=== PATIENT | male | born 1935 | race Caucasian/White ===

== ENCOUNTER 2018-02-06 23:14 | Inpatient (IN) | payer OTHER ==
[~2018-02-06] VITALS: Ht 170.2 cm; Wt 106.1 kg
[2018-02-06 23:20] VITALS: BP 163/76
[2018-02-06] MEDS ORDERED: CARDURA4 MG PO (23:29)
[2018-02-06] MEDS ORDERED: MACRODANTIN100 MG PO (23:29)
[2018-02-06] MEDS ORDERED: LASIX 20 MG TAB20 MG PO (23:30)
[2018-02-06] MEDS ORDERED: TOPROL XL25 MG PO (23:30)
[2018-02-06] MEDS ORDERED: FLECAINIDE ACET50 M2 PO (23:31)
[2018-02-06] MEDS ORDERED: IRON325 PO (23:32)
[2018-02-06] MEDS ORDERED: XARELTO20 MG PO (23:32)
[2018-02-06] MEDS ORDERED: PROSCAR 5MG TABL5 MG PO (23:32)
[2018-02-06] MEDS ORDERED: COENZYME Q10100 MG PO (23:33)
[2018-02-06] MEDS ORDERED: FOLBIC RF TABL1 EACH PO (23:33)
[2018-02-06] MEDS ORDERED: D3 DOTS2000 UNIT PO (23:34)
[2018-02-06] MEDS ORDERED: VITAMIN C1000 MG PO (23:35)
[2018-02-06] MEDS ORDERED: SV FLAXSEED OI1 EACH PO (23:36)
[2018-02-06 23:46] LABS: URINE BILIRUBIN NEGATIVE (Negative); URINE BLOOD 3+ (Negative); URINE CLARITY TURBID; URINE COLOR YELLOW; URINE GLUCOSE-RANDOM NEGATIVE (Negative); URINE KETONES TRACE (Negative); URINE PROTEIN 2+ (Negative); URINE SPECIFIC GRAVITY 1.025 (1.005-1.030); URINE UROBILINOGEN 0.2 E.U./dl (0.2-1.0)
[2018-02-06 23:47] LABS: URINE LEUKOCYTES-REFLEX 3+ (Negative); URINE NITRITE-REFLEX POSITIVE (Negative)
[2018-02-06 23:52] LABS: HEMATOCRIT 42.9 % (42.0-52.0); HEMOGLOBIN 14.1 gm/dL (14.0-18.0); MCH 30.2 pg (26.0-34.0); MCV 91.6 fL (80.0-100.0); MPV 7.5 fl. (7.2-11.1); NUCLEATED RBCS 0 /100WBC; PLATELET COUNT* 247 thou/uL (150-400); RBC 4.68 mil/uL (4.50-6.00); WBC 13.5 thou/uL (4.0-11.0)
[2018-02-07] VITALS (9 sets, daily range): BP systolic 98–158; BP diastolic 49–83
[2018-02-07 00:06] LABS: CALCIUM 9.2 mg/dL (8.5-10.1); CREATININE 1.5 mg/dL (0.6-1.3); POTASSIUM 4.2 mmol/L (3.5-5.1)
[2018-02-07 00:08] LABS: CASTS None Seen /LPF (None Seen); SQUAMOUS 0-3 Few /LPF (0-3); URINE RBC >20 Many /HPF (0-2); URINE WBC-REFLEX >25 Many /HPF (0-5)
[2018-02-07 00:09] LABS: CRYSTALS None Seen /LPF (None Seen)
[2018-02-07 00:16] LABS: ALBUMIN 3.3 g/dL (3.4-5.0); TOTAL BILIRUBIN 0.6 mg/dL (<0.1-1.0); TOTAL PROTEIN 7.5 g/dL (6.4-8.2)
[2018-02-07 00:50] LABS: ABSOLUTE LYMPHOCYTES 0.7 thou/uL (0.8-5.3); ABSOLUTE MONOCYTES 1.1 thou/uL (0.0-1.2); ABSOLUTE NEUTROPHILS 11.7 thou/uL (1.6-8.1); LARGE PLATELETS OCCASIONAL; PLATELET ESTIMATE ADEQUATE
--- NOTE | 2018-02-07 06:10 | NUR ---
ASSESSMENT COMPLETE. ADMITTED WITH UTI AND LEFT EPIDIDYMITIS FAILED OUTPT. PT GIVEN IV LEVAQUIN AND ROCEPHIN. PT GIVEN VICODIN IN ED FOR PAIN AND HAS DENIED ANY PAIN SINCE ADMISSION TO FLOOR. PT VITALS STABLE. PT IS ALERT AND ORIENTED X4. PT IS ON ROOM AIR WITH ADEQAUTE SATS. DENIES N/V. PT REPORTS BURNING WITH URINATION. PT IS UP WITH ONE ASSIST TO BATHROOM. PT USES URINAL AT BEDSIDE. SEE ASSESSMENT AND VITALS FOR OTHER DETAILS. CALL LIGHT WITHIN REACH, WILL CONTINUE PLAN OF CARE
[2018-02-07 09:17] LABS: ABSOLUTE LYMPHOCYTES 1.1 thou/uL (0.8-5.3); ABSOLUTE MONOCYTES 1.5 thou/uL (0.0-1.2); ABSOLUTE NEUTROPHILS 14.7 thou/uL (1.6-8.1); BASOPHILS 0.2 %; HEMATOCRIT 38.2 % (42.0-52.0); HEMOGLOBIN 12.7 gm/dL (14.0-18.0); LYMPHOCYTES 6.1 %; MCH 30.1 pg (26.0-34.0); MCHC 33.4 g/dL (28.0-37.0); MCV 90.2 fL (80.0-100.0); MONOCYTES 8.6 %; MPV 7.5 fl. (7.2-11.1); NUCLEATED RBCS 0 /100WBC; PLATELET COUNT* 227 thou/uL (150-400); POLYS 85.1 %; RBC 4.23 mil/uL (4.50-6.00); RDW-CV 13.9 % (10.5-14.5); WBC 17.3 thou/uL (4.0-11.0)
[2018-02-07 09:20] LABS: CALCIUM 8.3 mg/dL (8.5-10.1); CREATININE 1.3 mg/dL (0.6-1.3); POTASSIUM 4.2 mmol/L (3.5-5.1)
--- NOTE | 2018-02-07 14:45 | NUR ---
SW met with pt to complete initial assessment, introduce self, and SW role. Pt lives at home with ; pt says he and his plan to look into "[employer] insurance" that pt says will help pay for in home assistance as his may not be able to care for all of the needs with pt and household. Pt says that he does not use any DME or HH services. Pt is not sure that he will have any needs at dc; SW to continue to follow to assist with safe dc planning.
[2018-02-07 16:51] LABS: INR 1.3; PROTIME 12.4 Seconds (9.20-11.50)
--- NOTE | 2018-02-07 17:55 | NUR ---
UROLOGY HERE THIS AM AND SAW PATIENT FOR CONS REGARDING SCROTUM. SCROTUM ELEVATED AND BLADDER SCANNED. PATIENT URINATING SMALL AMOUNTS FREQUENTLY. CT ABD/PELVIS ORDERED AND DONE THIS AFTERNOON. RESULTS CALLED TO MILLER TAN FROM UROLOGY. ORDERS FOR COUDE, UROLOGY UNABLE TO PLACE. SCROTUM NOTED TO BE MORE RED/SWOLLEN WITH NOTABLE PURPLE DISCOLORATION TO BOTTOM TO SCROTUM, MILLER SANTILLAN AND NOTIFIED. DR. FRANCOIS HERE THIS EVENING AND PATIENT TO GO TO SURGERY. IVF WAS STARTED PER UROLOGY ORDERS AND XARELTO WAS NOT GIVEN THIS SHIFT.
[2018-02-08 04:07] VITALS: BP 138/76
[2018-02-08 04:55] LABS: HEMATOCRIT 35.6 % (42.0-52.0); HEMOGLOBIN 11.9 gm/dL (14.0-18.0); MCH 30.2 pg (26.0-34.0); MCHC 33.5 g/dL (28.0-37.0); MCV 90.2 fL (80.0-100.0); RBC 3.95 mil/uL (4.50-6.00); WBC 15.5 thou/uL (4.0-11.0)
[2018-02-08 04:59] LABS: CALCIUM 8.2 mg/dL (8.5-10.1); CREATININE 1.2 mg/dL (0.6-1.3); POTASSIUM 3.9 mmol/L (3.5-5.1)
--- NOTE | 2018-02-08 06:01 | NUR ---
PATIENT ARRIVED BACK ON FLOOR FROM PACU AT ABOUT 2030. I/D WAS DONE ON HIS SCROTUM. PATIENT HAS HAD NO COMPLAINTS OF PAIN. PATIENT HAS BEEN ON OXYGEN AT 3L PER NASAL CANNULA WITH THE CAPNO. IV FLUIDS AND ANTIBIOTICS WERE GIVEN ORDERED. VIERA REMAINS TO DEPENDENT DRAIN. WILL CONTINUE TO MONITOR.
[2018-02-08 07:45] VITALS: BP 124/68
--- NOTE | 2018-02-08 09:52 | EKG ---
[place] [address] ELECTROCARDIOGRAM REPORT Name: KAREEN ROMERO Room: [address] ADM IN .R.#: [id number] Admission: 02/07/18 Attend Phys: Karen Gomez Discharge: Date of : 31 Report #: [id number] THIS REPORT FOR: //name// [facility] Test Date: 2018-02-07 Test Time: 17:32:22 Pat Name: KAREEN ROMERO Department: Room: [address] Gender: M Retail Wireless Associate: : 1935 Requested By: Ayanna West Order Number: [id number] Luis Carlos MD: Jesse Mon Measurements Intervals [place] Rate: 65 P: 66 MO: 196 QRS: -9 QRSD: 98 T: 52 QT: 444 QTc: 462 Interpretive Statements Sinus rhythm Low voltage, extremity leads Abnormal R-wave progression, early transition No previous ECG available for comparison Electronically Signed On 02-08-2018 9:52:06 CDT by Jesse Mon [email or web address] <ELECTRONICALLY SIGNED> By: Jesse Mon MD, [facility] 02/08/18 0952 [id number] 31 Jesse Mon MD, [facility] /EPI
--- NOTE | 2018-02-08 11:51 | NUR ---
WOUND NURSE: SPOKE WITH DR. ALESSANDRO MD AND POC OF SCROTAL WOUNDS DEVELOPED. THERE ARE 3 WOUND OPENINGS: ANTERIOR WOUND OPENING MEASURES: 4.8 X 5.7 X 2.8 CM. LEFT SIDE: 1.2 X 0.5 X 1.1 CM. POSTERIOR: 1.2 X 0.7 X 2.0 CM. SCROTUM PRESENTS SLIGHTLY COOL AND REDDISH-PURPLE IN COLOR AND IS EDEMATOUS. WOUND BED WITH DARKER RED NONGRANULATING TISSUE IN THE WOUND BED. THERE IS A MODERATE AMOUNT OF SANGUINOUS DRAINAGE ON THE OLD DRESSING. REMOVED DRESSING AND ALL PACKING THEN CLEANSED WITH WOUND CLEANSER AND GAUZE. PACKED THE ANTERIOR WOUND USING 1 INCH IODOFORM GAUZE, THEN PACKED THE LEFT AND POSTERIOR WOUND WITH 1/4 INCH IODOFORM GAUZE. COVERED WITH FOLDED KERLEX ROLL GAUZE TO CREATE FLUFF GAUZE SPONGES, THEN COVERED WITH ABD X 2, AND HELD DRESSING IN PLACE USING MESH PANTIES. DRESSING IS TO BE CHANGED DAILY AND NEEDED.
--- NOTE | 2018-02-08 15:38 | CON ---
[address] [address] CONSULTATION Name: ROMEROKAREEN Camryn Room: [address] IN .R.#: [id number] Admission: 02/07/18 Attend Phys: Karen Gomez Discharge: Date of : 31 Report #: [id number] THIS REPORT FOR: //name// CC: Diogenes Perez DATE OF SERVICE: 02/08/2018 INFECTIOUS DISEASE CONSULTATION ATTENDING PHYSICIAN: Fred Mcgowan M.D. REASON FOR EVALUATION: Necrotizing skin and soft tissue infection involving the perineal area. HISTORY OF PRESENT ILLNESS: Chart reviewed, the patient examined. This is an 83-year-old with history of hypertension, does have an enlarged prostate apparently, who has had issues, although not frequently, of urinary tract infections. He developed burning with urination approximately 3 weeks ago. He had figured it would improve; however, did not. He was evaluated and felt to have a urinary tract infection and treated with Bactrim. It did not improve. It actually worsened over the course of the weekend, by Tuesday night, with excruciating pain. He was evaluated in the Emergency Room and subsequently admitted. Imaging raised a question of some process. He emergently went to surgery last evening for debridement and felt to have polymicrobial infection. He is seen today. He is much improved, particularly the pain. He denies systemic illness. He is not having difficulty breathing at this point. He has been afebrile. He is empirically placed on meropenem after having received initially ceftriaxone and nitrofurantoin. ALLERGIES: CODEINE AND LISTED TO AUGMENTIN. CURRENT MEDICATIONS: Include hydrocodone, meropenem, cholecalciferol, doxazosin, p.r.n. analgesics, antiemetics, ferrous sulfate, cyanocobalamin, finasteride, metoprolol, furosemide and flecainide. PAST MEDICAL HISTORY: History of hypertension, atrial fibrillation and BPH. SOCIAL HISTORY: Nonsmoker, no ethanol. FAMILY HISTORY: Noncontributory. REVIEW OF SYSTEMS: As above. PHYSICAL EXAMINATION: GENERAL: He is pleasant, alert and cooperative. He is in mild distress, [place] [address] CONSULTATION Name: KAREEN ROMERO Room: [address]#: [id number] Admission: 02/07/18 Attend Phys: Karen Gomez Discharge: Date of : 33 Report #: [id number] appears to be generally well nourished. VITAL SIGNS: Temperature 97.8, pulse 67, respirations 21 and blood pressure 111/58. SKIN: Warm, dry. HEENT: Unremarkable. NECK: Supple. LUNGS: Generally clear to auscultation. HEART: Regular. I do not appreciate a murmur. ABDOMEN: Soft. GENITOURINARY: Perineal area, there is some moderate degree of inflammation. There is an open wound with packing. There are some areas of superficial devitalized tissue. RECTAL: Deferred. LABORATORY DATA: Urine culture, greater than 10 to the fifth gram-negative franco. Blood cultures sterile thus far. Lactic acid 1.6. Electrolytes: Sodium 137, potassium 3.9, chloride 101, bicarbonate is 29 and BUN and creatinine 20 and 1.2. Estimated GFR 58. CBC: White count of 15.5, H and H 11.9 and 35.6 and platelets of 223,000. ASSESSMENT AND PLAN: Necrotizing perineal infection, without overt evidence of marked hemodynamic instability or multiorgan failure. We will continue meropenem. Per report, he may have a resistant gram-negative isolate from the urine previously. There is some concern about ongoing issues with toxin-mediated necrosis and may need additional operative debridement. He is recommended to be n.p.o. At this point, would concur. We will monitor expectantly for other potential infectious complications and introduce incentive spirometry. We will monitor expectantly. <ELECTRONICALLY SIGNED> By: Victor M Isaac MD 02/08/18 1538 1357 1519Jochristiano Isaac MD /nt
[2018-02-08 16:12] VITALS: BP 113/65
--- NOTE | 2018-02-08 16:23 | NUR ---
WOUND CARE HERE THIS MORNING TO SEE PATIENT, PACKING CHANGED TO SCROTUM. NO COMPLAINTS OF PAIN THIS SHIFT. PATIENT UP FOR MEALS. IVF INFUSING, SCHED ABX. VIERA DRAINING WITHOUT DIFFICULTY. NPO AFTER MIDNIGHT. XARELTO ON HOLD.
[2018-02-08 19:31] VITALS: BP 138/68
--- NOTE | 2018-02-09 01:07 | NUR ---
PT WITH EKG CHANGES NOTED; NO COMPLAINTS OF PAIN; REPORTED THAT HIS HEART WAS RACING; NOTED AFIB RVR, WITH POSSIBLE ST ELEVATION IN V2 AND V3; FAXED TO CARDIOLOGY INTERVENTIONALIST; RECEIVED PHONE CALL AND REPORTED PER INTERVENTIONALIST, NEGATIVE FOR STEMI, CONFIRMED AFIB RVR, WILL REPORT TO HOSPITALIST AND PRIMARY NURSE
--- NOTE | 2018-02-09 03:31 | NUR ---
HOSPITALIST NOTIFIED OF AFIB WITH RVR. CARDIZEM GTT ORDERED AND STARTED AT 10MG/HR. CURRENT VITALS 109/65 HEART RATE 90'S TO 110'S. PT IS ON 5L PER NC WITH ADEQAUTE SATS. PT DENIES CHEST PAIN. PT IS SLEEPING, WILL CONTINUE TO MONITOR
[2018-02-09 04:00] VITALS: BP 109/65
[2018-02-09 04:42] LABS: ABSOLUTE EOSINOPHILS 0.1 thou/uL (0.0-0.7); ABSOLUTE LYMPHOCYTES 1.2 thou/uL (0.8-5.3); ABSOLUTE MONOCYTES 1.2 thou/uL (0.0-1.2); ABSOLUTE NEUTROPHILS 11.3 thou/uL (1.6-8.1); BASOPHILS 0.3 %; EOSINOPHILS 0.9 %; HEMATOCRIT 35.7 % (42.0-52.0); HEMOGLOBIN 11.7 gm/dL (14.0-18.0); LYMPHOCYTES 8.9 %; MCHC 32.7 g/dL (28.0-37.0); MCV 91.7 fL (80.0-100.0); MONOCYTES 8.9 %; NUCLEATED RBCS 0 /100WBC; PLATELET COUNT* 229 thou/uL (150-400); RBC 3.89 mil/uL (4.50-6.00); RDW-CV 13.8 % (10.5-14.5); WBC 13.9 thou/uL (4.0-11.0)
[2018-02-09 05:04] LABS: CALCIUM 8.1 mg/dL (8.5-10.1); CREATININE 1.1 mg/dL (0.6-1.3); MAGNESIUM 2.2 mg/dL (1.8-2.4); POTASSIUM 3.5 mmol/L (3.5-5.1)
--- NOTE | 2018-02-09 05:13 | NUR ---
ASSESSMENT COMPLETE. PT IS CURRENTLY SLEEPING. PT IS STILL ON 5L PER NC WITH ADEQAUTE SATS. CARDIZEM GTT GOING AT 10MG/HR, BP 127/78 HEART RATE 100-110'S. PT DENIES PAIN AT THIS TIME. VIERA IN PLACE WITH ADEQAUTE OUTPUT. IV IN RIGHT FOREARM WITH FLUIDS INFUSING. PT IS FALL RISK, BED ALARM ON. SEE ASSESSMENT AND VITALS FOR OTHER DETAILS. CALL LIGHT WITHIN REACH, WILL CONTINUE PLAN OF CARE
[2018-02-09 06:14] VITALS: BP 127/78
--- NOTE | 2018-02-09 09:43 | EKG ---
[place] [address] ELECTROCARDIOGRAM REPORT Name: KAREEN ROMERO Room: [address] ADM IN ..#: [id number] Admission: 02/07/18 Attend Phys: Karen Gomez Discharge: Date of : 31 Report #: [id number] THIS REPORT FOR: //name// [facility] Test Date: 2018-02-09 Test Time: 00:49:29 Pat Name: KAREEN ROMERO Department: Room: [address] Gender: M Safety And Health Manager: UNKNOWN : 1935 Requested By: Lina Case Order Number: [id number] Luis Carlos MD: Jesse Mon Measurements Intervals [place] Rate: 146 P: IN: QRS: -29 QRSD: 96 T: 102 QT: 294 QTc: 459 Interpretive Statements Atrial fibrillation with rapid V-rate Low voltage, extremity leads nonspecific st changes Compared to ECG 02/07/2018 17:32:22 Sinus rhythm no longer present Electronically Signed On 02-09-2018 9:43:36 CDT by Jesse Mon [email or web address] <ELECTRONICALLY SIGNED> By: Jesse Mon MD, [facility] 02/09/18 0943 0049 0049 Jesse Mon MD, [facility] /EPI
--- NOTE | 2018-02-09 10:30 | NUR ---
PATIENT TRANSFERED TO TELEMETRY UNIT. REPORT GIVEN TO ELENA. BELONGINGS PACKED AND TRANSFERED WELL.
--- NOTE | 2018-02-09 11:02 | NUR ---
RECIEVED REPORT FROM RICARDO AND ASSUMED CARE OF PT @ 1025. PT IS A/O X 4, VSS,TRACING AFIB ON MONITOR, PT MAINTAINS 5L O2 NC WITH 96% O2 SAT.THIS NURSE AGREES WITH PREVIOUS NURSE ASSESSMENT. CONTACT ISOLATION MAINTAINED. PT IS CALM AND COOPERATIVE WITH CALL LIGHT AND FALL PRECAUTIONS IN PLACE. PT WAS LEFT RESTING IN BED WITH FAMILY AT BEDSIDE. WILL CONTINUE TO MONITOR.
[2018-02-09 11:30] VITALS: BP 102/62
--- NOTE | 2018-02-09 12:28 | 2DMMODE ---
[place] [address] 2 D/M-MODE ECHOCARDIOGRAM Name: KAREEN ROMERO Camryn Room: [address] IN [facility]#: [id number] Admission: 02/07/18 Attend Phys: Angelo Perez Discharge: Date of : 31 Date of Service: 02/09/18 1228 Report #: [id number] THIS REPORT FOR: //name// APPROVED REPORT Study performed: 02/09/2018 10:45:30 EXAM: Comprehensive 2D, Doppler, and color-flow Echocardiogram Patient Location: In-Patient Room #: 210 Status: 3 BSA: 2.21 HR: 99 bpm BP: 126/77 mmHg Rhythm: Atrial Fibrillation Other Information Study Quality: Good Indications Atrial Fibrillation 2D Dimensions LVEF(%): 66.92 (>50%) IVSd: 16.18 (7-11mm) LVOT Diam: 21.25 (18-24mm) LVDd: 53.08 mm PWd: 13.13 (7-11mm) Ascending Ao: 41.63 (22-36mm) LVDs: 33.24 (25-40mm) Aortic Root: 39.80 mm Haines's LVEF: 66.92 % Volumes Left Atrial Volume (Systole) LA ESV Index: 45.10 mL/m2 Aortic Valve AoV Peak Jai.: 1.56 m/s AO Peak Gr.: 9.75 mmHg LVOT Max P.74 mmHg AO Mean Gr.: 5.69 mmHg LVOT Mean P.60 mmHg LVOT Max V: 1.09 m/s AO V2 VTI: 27.52 cm LVOT Mean V: 0.75 m/s LAURA (VTI): 2.57 cm2 LVOT V1 VTI: 19.90 cm Mitral Valve MV Decel. Time: 162.91 [place] [address] 2 D/M-MODE ECHOCARDIOGRAM Name: KAREEN ROMERO Camryn Room: [address] IN [facility]#: [id number] Admission: 02/07/18 Attend Phys: Angelo Perez Discharge: Date of : 31 Date of Service: 02/09/18 1228 Report #: [id number] PHT: 47.24 ms MVA (PHT): 4.66 cm2 TDI Medial E' Jai.: 0.17 m/s Lateral E' Jai.: 0.16 m/s Pulmonary Valve PV Peak Jai.: 0.95 m/s PV Peak Gr.: 3.59 mmHg Tricuspid Valve TR Peak Gr.: 29.01 mmHg RVSP: 34.00 mmHg Left Ventricle The left ventricle is normal size. There is normal LV segmental wall motion. Mild concentric left ventricular hypertrophy. Left ventricular systolic function is normal. The left ventricular ejection fraction is within the normal range. LVEF is 60-65%. This study is not technically sufficient to allow evaluation of the LV diastolic function due to atrial fibrillation. Right Ventricle The right ventricle is normal size. The right ventricular systolic function is normal. Atria Left atrium is moderately dilated. The right atrium size is normal. Aortic Valve Mild aortic valve sclerosis. Trace aortic regurgitation. There is no aortic valvular stenosis. Mitral Valve The mitral valve is normal in structure. There is no mitral valve regurgitation noted. No evidence of mitral valve stenosis. Tricuspid Valve The tricuspid valve is normal in structure. Mild tricuspid regurgitation. The RVSP is 30-35 mmHg. Pulmonic Valve The pulmonary valve is normal in structure. Trace pulmonic regurgitation[place] [address] 2 D/M-MODE ECHOCARDIOGRAM Name: KAREEN ROMERO Camryn Room: [address]#: [id number] Admission: 02/07/18 Attend Phys: Angelo Perez Discharge: Date of : 31 Date of Service: 02/09/18 1228 Report #: [id number] The aortic root is normal in size. IVC is normal in size and collapses with >50% inspiration Pericardium There is no pericardial effusion. <Conclusion> LVEF is 60-65%. There is normal LV segmental wall motion. Left atrium is moderately dilated. Mild aortic valve sclerosis. There is no aortic valvular stenosis. Trace aortic regurgitation. Mild tricuspid regurgitation. The RVSP is 30-35 mmHg. There is no mitral valve regurgitation noted. No evidence of mitral valve stenosis. <ELECTRONICALLY SIGNED> By: Daquan Boone MD, FACC 02/09/18 1228 1228 1228 Daquan Boone MD, FACC /INF
--- NOTE | 2018-02-09 13:18 | S ---
[place] [address] SURGICAL PATH RPT PROCEDURE Name: KAREEN LAROSE Room: [address] IN ..#: [id number] Admission: 02/07/18 Date of : 33 Discharge: Report #: [id number] Path Case #: [id number] PATHOLOGY REPORT COLLECTION DATE: 02/07/2018 RECEIVED DATE: 02/08/2018 SUBMITTING PHYS: Dr. Ayanna West OTHER PHYS: Dr. Angelo Aguirre SPECIMEN(S) RECEIVED: A.Necrotic scrotal skin * * * * * * * * * * * * FINAL DIAGNOSIS: Necrotic scrotal skin: - Benign skin with extensive acute inflammation and fresh hemorrhage. (LYLE:alissa; 02/09/2018) PATHOLOGIST: Jea nPaul Hu M.D. REPORT ELECTRONICALLY SIGNED BY: Jean Paul Hu M.D. DATE/TIME: 02/09/2018 13:18 * * * * * * * * * * * * GROSS PATHOLOGY: The specimen is received in formalin, labeled "Kareen Larose, necrotic scrotal skin," and consists of 4 segments of brunson-hare skin and underlying necrotic soft tissue measuring 3.9 x 3.4 x 1.0 cm in aggregate. Represent sections are submitted in A1. (SDY; 02/08/2018) CLINICAL HISTORY: Fourniers gangrene INITIAL CPT CODE(S): A; 18839 Professional services performed by [facility] at [facility], [address] [place] [address]. Technical services performed by [facility] at [address] [place] [address], [address], [place] [address]. [facility] [id number] [place] [address] SURGICAL PATH RPT PROCEDURE Name: KAREEN LAROSE Room: [address] IN ..#: [id number] Admission: 02/07/18 Date of : 33 Discharge: Report #: [id number] Path Case #: [id number] PHONE: [phone] DIRECTOR: Stas Martinez M.D. * * * END OF REPORT * * *
[2018-02-09 14:58] VITALS: BP 98/54
--- NOTE | 2018-02-09 15:00 | NUR ---
PT CHEMICALLY CARDIOVERTED WITH A SEVEN SECOND PAUSE. TRACING SINUS GAIL ON MONITOR.IV CARDIZM STOPPED.EKG OBTAINED SHOWING SINUS GAIL.VITAL SIGNS TAKEN WITH BP 98/54.CARDIOLOGY NOTIFIED.
--- NOTE | 2018-02-09 18:56 | NUR ---
VSS. CARDIAC MONITORING IN PLACE PT REMIANS IN SR. PT PROGRESSIN TOWARDS GOALS. PT TITRATED TO RA. IVF INFUSING PER ORDERS. PT HAS HAD NO COMPLAITNS OF PAIN OR DISCOMFORT. PT'S DRESSING CHANGED BY UROLOGY. UROLOGY STRESSED IMPORTANCE OF WOUND NURSE ROUNDING AND SEEING PT FOR WOUND CARE. PT NPO AT 0000 FOR POSSIBLE SURERY IN AM. ULTRASOUND ORDERED IN AM. PT INFORMED OF PLAN OF CARE. CALL LIGHT IS WITHIN REACH. WILL CONTINUE TO MONITOR FOR DURATION OF SHIFT.
[2018-02-09 20:00] VITALS: BP 147/86
[2018-02-10] VITALS: BP 180/86
[2018-02-10 04:00] VITALS: BP 185/94
[2018-02-10 04:49] LABS: HEMATOCRIT 35.8 % (42.0-52.0); MCH 30.6 pg (26.0-34.0); MCHC 33.4 g/dL (28.0-37.0); MCV 91.4 fL (80.0-100.0); MPV 7.4 fl. (7.2-11.1); RBC 3.92 mil/uL (4.50-6.00); RDW-CV 13.9 % (10.5-14.5); WBC 13.3 thou/uL (4.0-11.0)
[2018-02-10 05:06] LABS: CALCIUM 8.3 mg/dL (8.5-10.1); CREATININE 0.9 mg/dL (0.6-1.3); POTASSIUM 3.7 mmol/L (3.5-5.1)
--- NOTE | 2018-02-10 05:48 | NUR ---
ASSUMED CARE OF PT AT 1900 ALERT AND ORIENTED VS AND ASSESSMENT STABLE. PT GOT OOB TO THE BEDSIDE COMMODE AND HIS ABD CAME OFF. PT ASKED ANOTHER NURSE WHO WAS HELPING HIM AND REFUSED TO GET BACK INTO BED UNTIL IT WAS DONE, PT ALSO YELLED AT STAFF BECAUSE WHEN PT ASKED IF THEY HAD A PHONE TEMPERATURE REGULATOR STAFF ASKED WHAT KIND PT RESPONDED BY YELLING " WELL THERES ONLY ONE KIND NOW ADAYS" TECH ASKED IF HE HAD HIS TEMPERATURE REGULATOR HERE AND SHE COULD CALL THE PREVIOUS UNIT AND ASK IF IT WAS STILL THERE PT RESPONDED " THEY DONT LIKE ME UP THERE THEY WONT FIND IT" PT THEN COMPLAINING OF CHEST PAIN DENIED ANY OTHER COMPLAINTS PRN MORPHINE O2 2L NC EKG AND TROP COMPLETED. PT SLEPT AFTER HAVING THE MORPHINE AND WOKE UP ANGRY THAT HE WAS ONLY GETTING HIS FLECANIDE BID AND HE TAKES IT TID AT HOME. PT STATED" DONT THEY CONSULT WITH MY DOCTOR BEFORE THEY MAKE CHANGES TO MY MEDS i CANT GO MORE THAN 8 HRS BEFORE MY HEART GOES CRAZY" BP 206/103 AT THIS TIME [address]IED DR PARR OF ABOVE, FLECANIDE CHANGED TO TID AND PRN BP MEDS ORDERED. WILL CONTINUE PLAN OF CARE.
[2018-02-10 11:33] VITALS: BP 188/97
--- NOTE | 2018-02-10 12:53 | NUR ---
ASSUMED PT CARE AT 0700 PT IS ALERT AND ORIENTED X 4 PT C/O PAIN IN BACK AND CHEST WHEN PT TAKES DEEP BREATH IN PT STATES HE WANTS TYLENOL THAT IV MORPHINE DID NOT HELP PAIN MILLER KUNZ UROLOGY SAW PT TALKED WITH NURSE PRACTIONER FOLLOWING PT AND ORDERED A CTA CHEST DOWN TO THE PELVIS SURGERY WILL SEE PT LATER TODAY, PT HAS ANTIBIOTICS ORDERED IV AND FLUIDS RUNNING, PT SCROTUM IS PACKED AND HAS DRESSING COVERING, PT HAS BEEN PLEASANT AND COOPERATIVE WITH THIS NURSE PT HAS NOT BEEN INAPPROPRIATE OR HOSTILE TOWARDS STAFF, GAVE PT TYLENOL WILL CONTINUE TO MONITOR
--- NOTE | 2018-02-10 13:48 | EKG ---
[place] [address] ELECTROCARDIOGRAM REPORT Name: KAREEN ROMERO Room: [address] ADM IN [facility]#: [id number] Admission: 02/07/18 Attend Phys: Karen Gomez Discharge: Date of : 33 Report #: [id number] THIS REPORT FOR: //name// [facility] Test Date: 2018-02-09 Test Time: 09:38:21 Pat Name: KAREEN ROMERO Department: Room: [facility] Gender: M Erosion Control Specialist: : 1935 Requested By: Angelo Perez Order Number: [id number] Luis Carlos MD: Jesse Mon Measurements Intervals [place] Rate: 94 P: [place]: QRS: -19 QRSD: 95 T: 75 QT: 371 QTc: 464 Interpretive Statements Atrial fibrillation Borderline left axis deviation Borderline low voltage, extremity leads Compared to ECG 02/09/2018 00:49:29 ST (T wave) deviation no longer present Electronically Signed On 02-10-2018 13:48:33 CDT by Jesse Mon [email or web address] <ELECTRONICALLY SIGNED> By: Jesse Mon MD, [facility] 02/10/18 1348 0938 0938 Jesse Mon MD, [facility] /EPI
--- NOTE | 2018-02-10 13:49 | EKG ---
[place] [address] ELECTROCARDIOGRAM REPORT Name: HEATHERKAREEN Camryn Room: [address] ADM IN ..#: [id number] Admission: 02/07/18 Attend Phys: Karen Gomez Discharge: Date of : 33 Report #: [id number] THIS REPORT FOR: //name// [facility] Test Date: 2018-02-09 Test Time: 14:42:53 Pat Name: KAREEN ROMERO Department: Room: [address] Gender: M Frame Coverer: UNKNOWN : 1935 Requested By: Angelo Perez Order Number: [id number] Luis Carlos MD: Jesse Mon Measurements Intervals [place] Rate: 54 P: 66 VA: 201 QRS: -12 QRSD: 100 T: 61 QT: 428 QTc: 406 Interpretive Statements Sinus bradycardia Low voltage, extremity leads Electronically Signed On 02-10-2018 13:49:19 CDT by Jesse Mon [email or web address] <ELECTRONICALLY SIGNED> By: Jesse Mon MD, [facility] 02/10/18 1349 1442 1442 Jesse Mon MD, [facility] /EPI
--- NOTE | 2018-02-10 13:54 | EKG ---
[place] [address] ELECTROCARDIOGRAM REPORT Name: KAREEN ROMERO Room: [address] ADM IN .R.#: [id number] Admission: 02/07/18 Attend Phys: Karen Gomez Discharge: Date of : 31 Report #: [id number] THIS REPORT FOR: //name// [facility] Test Date: 2018-02-10 Test Time: 04:12:10 Pat Name: KAREEN ROMERO Department: Room: [address] Gender: M Farm Product Purchaser: : 1935 Requested By: Angelo Perez Order Number: [id number] Luis Carlos MD: Jesse Mon Measurements Intervals [place] Rate: 88 P: 54 [place]: 202 QRS: -21 QRSD: 99 T: 61 QT: 378 QTc: 458 Interpretive Statements Sinus rhythm Atrial premature complexes Borderline left axis deviation Low voltage, extremity leads Compared to ECG 02/09/2018 00:49:29 Atrial premature complex(es) now present ST (T wave) deviation no longer present Electronically Signed On 02-10-2018 13:54:47 CDT by Jesse Mon [email or web address] <ELECTRONICALLY SIGNED> By: Jesse Mon MD, [facility] 02/10/18 1354 0412 0412 Jesse Mon MD, [facility] /EPI
[2018-02-10 20:08] VITALS: BP 151/86
[2018-02-11] VITALS: BP 191/98
--- NOTE | 2018-02-11 07:58 | NUR ---
Pt hypertensive overnight. BP at MN was 190/100, then 180/135 at 0400. Hydralazine given after each of these BPs; however, pt continues to be hypertensive. Pt c/o minior pain to back, medicated twice with Tylenol per pt request. Reorts partial, but adequate relief after receiving Tylenol. Changed dressing to scrotum this am using Aquaseal and ABD pad. Will continue to monitor.
[2018-02-11 09:00] VITALS: BP 200/94
[2018-02-11 17:27] VITALS: BP 164/88
--- NOTE | 2018-02-11 18:38 | NUR ---
ASSUMED PT CARE AT 0700 PT IS ALERT AND ORIENTED X 4 PT STATES PAIN IN BACK STATES PAIN IS TOLERABLE PT DENEIES SOA ON 2L/NC, PT IS ANXIOUS ABOUT BLOOD PRESSURE WHICH IS ELEVATED GAVE PT MEDICATIONS AND EXTRA DOSE OF LISINOPRIL THE PHYSICIAN ORDERED AND THE PRN HYDRALAZINE PT BLOOD PRESSURE HAS DECREASED STILL ELEVATED PT IS INAPPROPRIATE TO STAFF YELLED AT THIS NURSE, PT IS UP WITH SBA TO COMMODE UROLOGY SAW PT CHANGED DRESSING ORDERS, PT THIS EVENING STATES PAIN IS NO LONGER TOLERABLE ASKED FOR TYLENOL WHICH THIS NURSE GAVE PT, PT IS SR-ST ON MONITOR, PT HAS VIERA IN PLACE, WILL CONTINUE TO MONITOR
[2018-02-11 20:00] VITALS: BP 153/85
[2018-02-11 23:26] VITALS: BP 175/99
--- NOTE | 2018-02-12 01:42 | NUR ---
THIS PTS NURSE ASKED ME TO GO WITH HER TO START PTS IV MEROPENEM BECAUSE PT HAD BEEN VERY RUDE TO HER EARLIER IN THE SHIFT AND SHE WANTED A WITNESS TO HIS BEHAVIOR. PT WAS VERY RUDE WHEN SHE ENTERED THE ROOM. PT TOLD HER THAT HE DIDNT WANT THE ANTIBIOTIC. SHE ASKED IF HE WAS REFUSING. HE SAID HE WASNT. SO SHE ASKED ME TO START IT. SO I TRIED TO HOOK IT UP TO HIS IV AND HE TOLD ME THAT HE DIDNT WANT ME TO GIVE IT TO HIM EITHER. PT WAS VERY BELIGERENT AND BORDERLINE VERBALY ABUSIVE TO OVI.
--- NOTE | 2018-02-12 01:49 | NUR ---
PT ALERT ORIENTED. INITAL HANDOFF RN CATA STATED A SMALL AMT OF MEROPENEM HAD LEAKED OUT FROM IV SITE. CATA HAD CHGD PT GOWN THAT HAD A DAMP AREA. INITAL ASSESSMENT PT ASKED ME WHAT I WAS GOING TO DO ABOUT HIS ANTIBIOTIC THAT HAD LEAKED FROM PREVIOUS SHIFT. PT EDUCATED THAT THERE WAS NO WAY TO DETERMIN HOW MUCH WAS LOST AND WE WOULD CONTINUE WITH THE NEXT DOSE DUE AT 0200. PT WAS ANGRY AND SHOUTING I AM GOING TO COMPLAIN. PT EDUCATED THAT HE WAS WITHIN HIS RIGHTS TO COMPLAIN. WHEN I WENT IN TO GIVE 0200 DOSE I REQUESTED RN TESS STAND OUTSIDE THE DOOR FOR A WITNESS. RN TESS WAITED OUTSIDE THE DOOR. I TOLD PT IT WAS TIME FOR HIS ANTIBIOTIC. HE BECAME VERY ANGRY AND WAS YELLING, YOU ARE NOT GOING TO GIVE ME AN ATIBIOTIC. I ASKED PT IF HE WAS REFUSING AND HE SAID NO BUT YOUR NOT GOING TO GIVE IT TO ME. I SAID I WOULD GET HIM ANOTHER NURSE TO GIVE IT. I CALLED FOR TESS TO COME IN ROOM. TESS STARTED TO GIVE IV ANTIBIOTIC AND PT YELLED AT TESS RN YOU ARE NOT GOING TO GIVE ME THAT ANTIBIOTIC. I SAID OKAY AND WE WALKED OUT OF THE ROOM PT WAS YELLING YOU ARE NOT GOING TO HEAR THE END OF THIS. TELEMETRY SHOWS SR. VIERA WITH CLEAR YELLOW. ON RA. WILL CONTINUE TO MONITOR.
[2018-02-12 04:00] VITALS: BP 197/116
[2018-02-12 04:31] LABS: HEMATOCRIT 41.2 % (42.0-52.0); HEMOGLOBIN 13.7 gm/dL (14.0-18.0); MCH 30.1 pg (26.0-34.0); MCHC 33.3 g/dL (28.0-37.0); MCV 90.4 fL (80.0-100.0); MPV 7.3 fl. (7.2-11.1); RBC 4.56 mil/uL (4.50-6.00); RDW-CV 13.7 % (10.5-14.5); WBC 16.7 thou/uL (4.0-11.0)
[2018-02-12 04:49] LABS: CREATININE 0.9 mg/dL (0.6-1.3); POTASSIUM 3.3 mmol/L (3.5-5.1)
--- NOTE | 2018-02-12 05:02 | NUR ---
PT WENT INTO AFLUTTER RVR 140. [address] SHARMA NOTIFIED. ORDER FOR CARDIZEM QTT.
--- NOTE | 2018-02-12 06:12 | NUR ---
PATIENT STATES HAVING CHEST PAIN TO MID CHEST. STATES WAS UP TO BSC AND RETURNED TO BED AND ATTEMPTED TO PULL SELF UP, STATES IT'S MUSCULAR PAIN. TYLENOL GIVEN PER REQUEST. FAMILY AT BEDSIDE. WILL MONITOR.
--- NOTE | 2018-02-12 06:51 | NUR ---
PT CONVERTED FROM A FLUTTER TO SR 80S. CARDIZEM DECREASED TO 5MG/HR. STATES PAIN IS MUCH BETTER. BP 111/89.
[2018-02-12 08:00] VITALS: BP 127/66
[2018-02-12 12:35] VITALS: BP 170/92
[2018-02-12 15:59] VITALS: BP 141/75
--- NOTE | 2018-02-12 18:07 | NUR ---
JESSICA RESTING IN CHAIR. UP TO BSC AND CHAIR WITH STANDBY ASSIST ONLY. VIAL SIGN STABLE AND PATIENT IN NOAPPARENT SIGNS OF DISTRESS AT THIS TIME. SR ON MONITOR. IV RAJIV DC'D AT 08:40 THIS MORNING WITH PATIENTS HEART RATE IN NSR. HOURLY ROUNDING COMPLETED FOR PATIENT SAFETY.
--- NOTE | 2018-02-12 19:45 | NUR ---
THIS NURSE RECEIVES REPORT FROM TESS REDD AT 1930, PT IS ALERT AND ORIENTED X4, RESTING QUIETLY IN BED, DENIES PAIN, DENIES SOA/N/V, PT REPORTS THAT HIS DRESSING TO SCROTUM IS INTACT, REPORTS THAT HE CHANGES HIS ABD PAD WHEN HE GETS UP TO COMMODE, VIERA CATH IN TACT TO DEPENDENT DRAINAGE, CONTINUES ON CONTACT ISOLATION FOR ESBL INFECTION, PT EXPRESSES NO COMPLAINT/CONCERNS AT THIS TIME
[2018-02-12 20:00] VITALS: BP 184/87
[2018-02-13] VITALS: BP 178/95
[2018-02-13 04:13] VITALS: BP 176/91
[2018-02-13 04:39] LABS: HEMATOCRIT 37.7 % (42.0-52.0); HEMOGLOBIN 12.4 gm/dL (14.0-18.0); MCH 29.9 pg (26.0-34.0); MCHC 32.8 g/dL (28.0-37.0); MCV 91.2 fL (80.0-100.0); MPV 7.4 fl. (7.2-11.1); RBC 4.13 mil/uL (4.50-6.00); WBC 15.4 thou/uL (4.0-11.0)
[2018-02-13 05:01] LABS: CALCIUM 8.5 mg/dL (8.5-10.1)
--- NOTE | 2018-02-13 06:18 | NUR ---
PT PLEASANT THROUGHOUT THE NIGHT, PTS BLOOD PRESSURE REMAINS ELEVATED, DR HARRY NOTIFIED, RECIEVED ORDER FOR PRN ANTIHYPERTENSIVE MEDICATION THIS AM, NEW IV TO RT FOREARM, PT REMAINS ON ROOM AIR, REMAINS SR ON DECISION UNIT RN, NO COMPLAINTS/CONCERNS EXPRESSED
[2018-02-13 08:00] VITALS: BP 183/82
--- NOTE | 2018-02-13 10:12 | NUR ---
WOUND NURSE: PATIENT SEEN FOR FOLLOW UP ASSESSMENT OF SCROTAL WOUND WITH 3 OPENINGS: ANTERIOR: 4.0 X 7.0 X 1.8 CM. POSTERIOR: 2.0 X 1.5 X 0.8 CM. LEFT: 1.5 X 0.5 X 0.7 CM. PRESENTS WITH EARLY PINK GRANULATION, PINK NONGRANULATON TISSUE, AND SMALL TO MODERATE AMOUNT OF SLOUGH. OVERALL PERIWOUND COLOR HAS IMPROVED SIGNIFICANTLY CHANGING FROM RUBOR TO PINK IN COLOR. REMOVED DRESSING AND CLEANSED WITH SOAP AND WATER, RINSED WITH WATER, THEN PATTED DRY. PACKED WITH AQUACEL AG UNDER ABD, THEN SECURED WITH MESH PANTIES. THIS WAS TOLERATED WELL BY THE PATIENT. PATIENT'S LEFT TESTICLE WAS ALSO NOTED TO BE HARD AND PATIENT HAS RED, MACULAR RASH ON BACK. THIS WAS SHARED WITH DR. GOODWIN AND PATIENT'S STAFF NURSE WHO INFORMED UROLOGY ABOUT THE CONCERN WITH LEFT TESTICLE. PATIENT WAS INSTRUCTED ON REPORTABLE SIGNS AND SYMPTOMS, AND ON MEASURES TO PROMOTE HEALING WITH FAVORABLE PROGRESS TOWARD UNDERSTANDING ACHIEVED.
[2018-02-13 11:47] VITALS: BP 124/74
--- NOTE | 2018-02-13 12:57 | NUR ---
Urology here to see Pt, cancelled plans for surgery tomorrow. U/S to be completed today. Pt ready to dc, per Urology, anticipate dc later this week. Following.
[2018-02-13 16:01] VITALS: BP 184/88
--- NOTE | 2018-02-13 16:38 | NUR ---
PATINET RESTING IN BED. WOUND CARE PERFORMED TODAY WITH DRESSING CHANGED AND AUGACELL AG AND ABD PAD TO WOUND. VITAL SINGNS STABLE AND PATINET IN NOAPPARENT SIGNS OF DISTRESS AT THIS TIME. HOURLKY ROUNDING COMPLETED FOR PATIENT SAFETY.
[2018-02-13 20:00] VITALS: BP 176/93
[2018-02-14] VITALS: BP 179/69
[2018-02-14 04:00] VITALS: BP 189/94
--- NOTE | 2018-02-14 05:50 | NUR ---
PT CARE ASSUMED AFTER REPORT. ASSESSMENT COMPLPETE. SR/1ST DEGREE ON MONITOR. DRESSING TO SCROTUM C/D/I. CONTACT PRECAUTIONS IN PLACE. FOLET TO DD. UP AD TRUONG WITH STEADY GAIT. PRN PAIN MEDICATION GIVEN PER PT REQUEST. PT REPORTED RELIEF OF PAIN. CALL LIGHT IN REACH. BED IN LOWEST POSTION. PROGRESSING TOWARDS GOALS.
[2018-02-14 08:00] VITALS: BP 131/65
[2018-02-14] MEDS ORDERED: BENADRYL ITCH28.3 GM TOP (09:06)
[2018-02-14] MEDS ORDERED: CORTISONE60 GM TOP (09:06)
[2018-02-14 09:33] VITALS: BP 189/94
[2018-02-14 10:05] VITALS: BP 189/94
--- NOTE | 2018-02-14 10:05 | NUR ---
Pt discharging to home today with [facility]. Updated [facility] and faxed orders. Pt in agreement with POC and has a ride home.
[2018-02-14 11:30] VITALS: BP 127/72
[2018-02-14] MEDS ORDERED: CLEOCIN HCL150 MG PO (15:43)
[2018-02-14] MEDS ORDERED: NORCO 5-325 TA1 EAC1 PO (15:44)
--- NOTE | 2018-02-14 19:00 | NUR ---
ORDER RECEIVED TO DISCHARE JESSICA TO HOME WITH HOME [facility] OR SCROTAL WOUND CARE. MED REC, MEDICATION EDUCATION, STROKE EDUCATION, NEED FOR FOLLOW UP APPOINTMNETS WITH UROLOGY/WOUND CARE/INFECTIOUS DISEASE ALL COVERED ANS STATED UNDERSTOOD BY JESSICA AND . PHOTOS TAKEN OF SURGICAL WOUNDS TO SCROTUM. DC TIME OF 18:30.
--- NOTE | 2018-02-22 11:57 | OP ---
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 PROCEDURE: Debridement of Stewart gangrene and simple Barton placement. SURGEON: Ayanna West MD. ANESTHESIA: General. ESTIMATED BLOOD LOSS: 15 mL. COMPLICATIONS: None. SPECIMENS: Urine for culture and sensitivity and scrotal tissue. INDICATIONS FOR PROCEDURE: The patient is an 83-year-old male who was treated outpatient for UTI, but failed to improve. He presented with scrotal erythema, possible epididymitis, as well as persistent UTI. His urine culture ended up coming back from the outpatient setting as ESBL. He is also retaining urine. Throughout the day today, scrotal exam was monitored and he began to show changes of necrotic skin and CT scan, although did not reading on the final report, did show couple tiny gas bubbles on the anterior scrotum on my review. Due to the concern for developing Stewart gangrene, emergent debridement was recommended. The risks of procedure were discussed including bleeding, injury to adjacent structures, difficulty with wound healing and cardiopulmonary complications. The patient is on Xarelto, but took his last dose yesterday, was held today. The patient voiced understanding and wishes to proceed. DESCRIPTION OF PROCEDURE: After informed consent was obtained, the patient was taken back to the operating suite and placed supine. After induction of general anesthesia, he was placed in dorsal lithotomy position. Genitalia were prepped and draped in standard fashion. Rectal exam was performed prior to prepping and draping and there was no evidence of any rectal involvement and prostate felt smooth and anodular, probably about 40 grams. Exam was performed. His scrotal skin was noted to be purple/blackish in color, especially in the midline. This was quite a large area, probably around 4 inches or so[place] [address] OPERATIVE REPORT Name: KAREEN ROMERO Camryn Room: [address]#: [id number] Admission: 02/07/18 Attend Phys: Karen Gomez Discharge: 02/14/18 Date of : 31 Report #: [id number] blackened areas on the left inferior hemiscrotum that were concerning. The purplish discoloration extended on to the left hemiscrotum. Where the skin appeared black over the median raphe , an incision was made. Initially, there was no bleeding tissue, but Metzenbaum scissors was used to probe into the area, did not track deep at all, probably about a half an inch and just a very small amount of superficial tissue appeared to be nonviable along with about a 3-4 inch portion of scrotal skin. Just underneath the skin was viable bleeding tissue and basically cut the skin and tissue until bleeding tissue was encountered. Again, the depth was not very deep at all, probably a half an inch in the midline and then to the right of the median raphe, just required the skin be excised to reach bleeding tissue. The total defect was probably around 3-4 inches. A lot of the scrotal erythema, especially on the right side, seemed to decrease with this maneuver. He still had some purplish discoloration on to the left hemiscrotum and down in the left inferior scrotum. A small incision was made in the left inferior scrotum and it just appeared that this was just venous congestion as there was brisk bleeding immediately after incision. There was no tissue in this area, so I did not pursue that any further. I probed the wound and this did not track anywhere at all. There was no crepitus and no purulence throughout. Again, on to the left anterior hemiscrotum, the purplish discoloration persisted. Therefore, I made another small incision in the left upper anterior scrotum and this also was just severely venous congestion without any evidence of necrosis, crepitus, or purulence. There was brisk bleeding from this area too. It almost appears like he has scrotal wall hematoma more so in the left hemiscrotum or significant venous congestion. At this point, I was very satisfied that any remaining purplish discoloration was just severe venous congestion and no evidence of any further necrosis. Once this was accomplished, his penile edema and scrotal edema was noted to be mildly improved. Prior to surgery, his penile edema was so severe, his meatus was not evident. However, at this point, I was able to expose the meatus and a 16-Wolof coude was placed with return of about 500 mL of purulent urine. The balloon was inflated with 10 mL of water. The incisions were all pretty oozy despite cauterizing any bleeders likely because of his Xarelto. Therefore, FloSeal was placed in all the incisions and left in place for several minutes to help with hemostasis. Once this was done, the FloSeal was irrigated out of all the incisions and everything remained hemostatic at this point and all incisions were copiously irrigated with antibiotic solution. Procedure was essentially concluded at this point. Iodoform packing was used to pack all the incisions, although they were all pretty shallow and did not hold the packing extremely well, but this was all secured with fluffs and ABD pads over top of this to keep this in place. Mesh panties were applied to hold all the dressings in place and catheter was secured with a StatLock. At this point, the procedure was concluded. All sponge, needle, instrument counts were correct. He was awoken [place] [address] OPERATIVE REPORT Name: KAREEN ROMERO Room: [address] IN [facility]#: [id number] Admission: 02/07/18 Attend Phys: Karen Gomez Discharge: 02/14/18 Date of : 33 Report #: [id number] satisfactory condition. He will be admitted back to the floor on IV antibiotics meropenem. We will consult ID in the morning and also Wound Care in the morning and we will monitor with serial exams to ensure no further debridement is needed, although I suspect he should be okay at this point as he appears to just have pretty severe venous congestion left. <ELECTRONICALLY SIGNED> By: Ayanna West MD 02/22/18 1157 [id number] 2048Ayanna West MD /nt
--- NOTE | 2018-04-11 17:14 | EKG ---
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
== END 2018-02-14 18:15 | disposition home health service (06) | DRG 871 ==
LOC: M.ERS 23:14 → M.TBA-ER 02-07 00:16 → M.3W 02-07 00:16 → M.2W 02-09 10:36
PROVIDERS: Internal Medicine; Nurse Practitioner Family; Nurse Practitioner Psychiatric/Mental Health; Physician Assistant; Urology; ADMIT Internal Medicine
PROC: 0HBAXZZ Excision of Inguinal Skin, External Approach (ICD-10-PCS; principal; 2018-02-07)
DX: A41.9 Sepsis, unspecified organism (principal); J96.01 Acute respiratory failure with hypoxia; J18.9 Pneumonia, unspecified organism; N17.9 Acute kidney failure, unspecified; N30.00 Acute cystitis without hematuria; N49.3 Fournier gangrene; B96.89 Other specified bacterial agents as the cause of diseases classified elsewhere; N40.0 Benign prostatic hyperplasia without lower urinary tract symptoms; I16.0 Hypertensive urgency; E66.9 Obesity, unspecified; N45.1 Epididymitis; N18.3 Chronic kidney disease, stage 3 (moderate); I48.91 Unspecified atrial fibrillation; Z79.899 Other long term (current) drug therapy; I12.9 Hypertensive chronic kidney disease with stage 1 through stage 4 chronic kidney disease, or unspecified chronic kidney disease; Z88.1 Allergy status to other antibiotic agents; Z88.5 Allergy status to narcotic agent; Z88.8 Allergy status to other drugs, medicaments and biological substances; Z68.36 Body mass index [BMI] 36.0-36.9, adult

== ENCOUNTER → 2018-02-20 | Outpatient (CLI) | payer OTHER ==
[~2018-02-20] MED LIST: BENADRYL ITCH28.3 GM TOP; CARDURA4 MG PO; CLEOCIN HCL150 MG PO; COENZYME Q10100 MG PO; CORTISONE60 GM TOP; D3 DOTS2000 UNIT PO; FLECAINIDE ACET50 M2 PO; FOLBIC RF TABL1 EACH PO; GENTAMICIN100 MG/100 IV; INVANZ 1GM/NS 101 GM IV; IRON325 PO; LASIX 20 MG TAB20 MG PO; MACRODANTIN100 MG PO; NORCO 5-325 TA1 EAC1 PO; PROSCAR 5MG TABL5 MG PO; SV FLAXSEED OI1 EACH PO; TOPROL XL25 MG PO; VITAMIN C1000 MG PO; XARELTO20 MG PO
--- NOTE | 2018-02-22 12:32 | CON ---
[address] [address] CONSULTATION Name: KAREEN ROMERO Camryn [id number] Admission: 02/20/18 Attend Phys: Toya Chaidez MD Discharge: Date of : 33 Report #: [id number] THIS REPORT FOR: //name// CC: Diogenes Chaidez DATE OF SERVICE: 02/20/2018 INFECTIOUS DISEASE CONSULTATION ATTENDING PHYSICIAN: Dr. Toya Chaidez. REASON FOR EVALUATION: Here for followup of necrotizing skin and soft tissue involving his perineal area, particularly the scrotum post-hospitalization. HISTORY OF PRESENT ILLNESS: Chart reviewed, the patient examined. The patient returns today in followup after being hospitalized for an excess of a week, had surgical debridement of the skin and soft tissue infection with abscess involving his scrotum. He had been on parenteral therapy in the interim, completing roughly 3 weeks of treatment. He generally is feeling better. He denies significant amount of pain. On evaluation, the wound showed clear healing at this point with overall less inflammation. ASSESSMENT AND PLAN: Excising skin and soft tissue infection involving the scrotum with abscess. At this point, I think he has had what I would deem enough antibiotics at the completion of his current prescribed therapy and we will discontinue. I will see him back in 1 week for followup and daily continue wound care to heal. <ELECTRONICALLY SIGNED> By: Victor M Isaac MD 02/22/18 1232 0913 1109Jochristiano Isaac MD /jessica
== END ==
LOC: M.WC 07:46
DX: T81.31XA Disruption of external operation (surgical) wound, not elsewhere classified, initial encounter (principal); L03.315 Cellulitis of perineum; I10 Essential (primary) hypertension; I48.91 Unspecified atrial fibrillation; Z87.891 Personal history of nicotine dependence; Y83.8 Other surgical procedures as the cause of abnormal reaction of the patient, or of later complication, without mention of misadventure at the time of the procedure

== ENCOUNTER 2018-02-24 16:49 | Inpatient (IN) | payer OTHER ==
[~2018-02-24] VITALS: Ht 175.3 cm; Wt 108.9 kg
[~2018-02-24 16:49] MED LIST changes: -GENTAMICIN100 MG/100 IV; -INVANZ 1GM/NS 101 GM IV
[2018-02-24 16:56] VITALS: BP 153/78; BP 205/99
[2018-02-24 17:32] LABS: ABSOLUTE BASOPHILS 0.1 thou/uL (0.0-0.2); ABSOLUTE EOSINOPHILS 0.7 thou/uL (0.0-0.7); ABSOLUTE LYMPHOCYTES 1.5 thou/uL (0.8-5.3); ABSOLUTE MONOCYTES 0.9 thou/uL (0.0-1.2); ABSOLUTE NEUTROPHILS 6.4 thou/uL (1.6-8.1); BASOPHILS 0.7 %; EOSINOPHILS 7.2 %; HEMATOCRIT 37.3 % (42.0-52.0); HEMOGLOBIN 12.7 gm/dL (14.0-18.0); LYMPHOCYTES 15.8 %; MCH 30.7 pg (26.0-34.0); MCV 90.4 fL (80.0-100.0); MONOCYTES 9.2 %; MPV 7.8 fl. (7.2-11.1); NUCLEATED RBCS 0 /100WBC; PLATELET COUNT* 315 thou/uL (150-400); POLYS 67.1 %; RBC 4.13 mil/uL (4.50-6.00); RDW-CV 13.6 % (10.5-14.5); WBC 9.5 thou/uL (4.0-11.0)
[2018-02-24 17:37] LABS: CALCIUM 8.9 mg/dL (8.5-10.1); CREATININE 1.1 mg/dL (0.6-1.3); POTASSIUM 3.4 mmol/L (3.5-5.1)
[2018-02-24 17:42] LABS: ALBUMIN 2.6 g/dL (3.4-5.0); TOTAL BILIRUBIN 0.3 mg/dL (<0.1-1.0); TOTAL PROTEIN 6.6 g/dL (6.4-8.2)
[2018-02-24 17:46] LABS: URINE BILIRUBIN NEGATIVE (Negative); URINE BLOOD 3+ (Negative); URINE CLARITY SL CLOUDY; URINE COLOR YELLOW; URINE GLUCOSE-RANDOM NEGATIVE (Negative); URINE KETONES NEGATIVE (Negative); URINE PROTEIN NEGATIVE (Negative); URINE UROBILINOGEN 0.2 E.U./dl (0.2-1.0)
[2018-02-24 17:52] LABS: URINE LEUKOCYTES-REFLEX 2+ (Negative); URINE NITRITE-REFLEX POSITIVE (Negative)
[2018-02-24 18:01] LABS: BACTERIA-REFLEX >30 Many /HPF (None Seen); CASTS None Seen /LPF (None Seen); CRYSTALS None Seen /LPF (None Seen); SQUAMOUS 0-3 Few /LPF (0-3); URINE WBC-REFLEX >25 Many /HPF (0-5)
[2018-02-24 21:32] VITALS: BP 162/90
[2018-02-24 22:30] VITALS: BP 130/73
[2018-02-25 04:32] VITALS: BP 183/89
[2018-02-25 04:34] LABS: HEMATOCRIT 34.8 % (42.0-52.0); HEMOGLOBIN 11.8 gm/dL (14.0-18.0); MCH 30.4 pg (26.0-34.0); MCHC 33.9 g/dL (28.0-37.0); MCV 89.8 fL (80.0-100.0); MPV 7.8 fl. (7.2-11.1); RBC 3.88 mil/uL (4.50-6.00); RDW-CV 13.9 % (10.5-14.5); WBC 9.3 thou/uL (4.0-11.0)
[2018-02-25 04:50] LABS: CALCIUM 8.2 mg/dL (8.5-10.1); CREATININE 0.9 mg/dL (0.6-1.3)
[2018-02-25 06:26] LABS: POTASSIUM 3.5 mmol/L (3.5-5.1)
[2018-02-25 08:00] VITALS: BP 147/70
[2018-02-25 17:36] VITALS: BP 174/85
[2018-02-25 21:30] VITALS: BP 175/87
[2018-02-26] VITALS (7 sets, daily range): BP systolic 138–205; BP diastolic 65–114
[2018-02-26 05:14] LABS: HEMATOCRIT 38.8 % (42.0-52.0); HEMOGLOBIN 12.7 gm/dL (14.0-18.0); MCH 29.9 pg (26.0-34.0); MCHC 32.8 g/dL (28.0-37.0); MCV 91.2 fL (80.0-100.0); MPV 8.2 fl. (7.2-11.1); RBC 4.26 mil/uL (4.50-6.00)
[2018-02-26 05:33] LABS: CALCIUM 8.5 mg/dL (8.5-10.1); MAGNESIUM 2.1 mg/dL (1.8-2.4); POTASSIUM 3.4 mmol/L (3.5-5.1)
[2018-02-26] MEDS ORDERED: INVANZ 1GM/NS 101 GM IV (13:42)
[2018-02-26] MEDS ORDERED: GENTAMICIN100 MG/100 IV (13:55)
[2018-02-27 03:10] VITALS: BP 115/71
[2018-02-27 03:30] VITALS: BP 93/64
[2018-02-27 03:40] VITALS: BP 115/71
[2018-02-27 05:17] LABS: HEMATOCRIT 35.3 % (42.0-52.0); HEMOGLOBIN 11.5 gm/dL (14.0-18.0); MCHC 32.6 g/dL (28.0-37.0); MCV 91.9 fL (80.0-100.0); MPV 7.9 fl. (7.2-11.1); RBC 3.84 mil/uL (4.50-6.00); RDW-CV 14.2 % (10.5-14.5); WBC 12.1 thou/uL (4.0-11.0)
[2018-02-27 05:31] LABS: CALCIUM 8.6 mg/dL (8.5-10.1); POTASSIUM 3.4 mmol/L (3.5-5.1)
[2018-02-27 08:00] VITALS: BP 114/89
[2018-02-27 12:00] VITALS: BP 151/65
--- NOTE | 2018-02-27 15:19 | EKG ---
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: : 1935 Requested By: Angelo Perez Order Number: [id number] Luis Carlos MD: Jesse Mon Measurements Intervals [place] Rate: 125 P: [place]: QRS: -12 QRSD: 93 T: 88 QT: 344 QTc: 497 Interpretive Statements Atrial fibrillation Low voltage, extremity leads Nonspecific T abnormalities, lateral leads Borderline prolonged QT interval Compared to ECG 02/10/2018 04:12:10 Sinus rhythm no longer present Electronically Signed On 02-27-2018 15:19:03 CDT by Jesse Mon [email or web address] <ELECTRONICALLY SIGNED> By: Jesse Mon MD, [facility] 02/27/18 1519 0334 0334 Jesse Mon MD, [facility] /EPI
--- NOTE | 2018-03-03 10:26 | CON ---
[address] [address] CONSULTATION Name: HEATHERKAREEN L Room: [address]#: [id number] Admission: 02/24/18 Attend Phys: Karen Gomez Discharge: 02/27/18 Date of : 31 Report #: [id number] THIS REPORT FOR: //name// CC: Diogenes Perez REASON FOR CONSULTATION: I was asked to evaluate concerning multidrug resistant E. coli urinary tract infection. 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 He has been followed by Dr. Isaac. He completed a course of IV antibiotic therapy and oral treatment. He was found to have pyuria, bacteriuria and E. 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 Hospitalized on 02/24/2018, placed on IV antibiotic therapy. He has been on multiple drugs so far. No fever, chills or sweats. He has been urinating without discomfort. No back pain. Still has some swelling in his scrotum. ALLERGIES: AMOXICILLIN, CODEINE. MEDICATIONS: As noted on his MAR, which were reviewed. This would include clindamycin, nitrofurantoin, gentamicin, cefepime. PAST MEDICAL HISTORY: Hypertension, atrial fibrillation, herniorrhaphy, benign prostatic hypertrophy. FAMILY HISTORY: Noncontributory. SOCIAL HISTORY: Nonsmoker, no significant alcohol intake. REVIEW OF SYSTEMS: No cardiopulmonary or GI complaints. PHYSICAL EXAMINATION: VITAL SIGNS: Afebrile, hemodynamically stable. GENERAL: He is alert, cooperative, pleasant, in no acute distress. HEENT: Unremarkable. CHEST: Clear. HEART: Regular, without murmur. ABDOMEN: Mildly protuberant, nontender, no hepatosplenomegaly or mass. GENITOURINARY: Scrotum was swollen with enlarged left testis. Three wounds with packing in place. No perineal tenderness or swelling. RECTAL: Not performed. LABORATORY DATA: Sodium 143, potassium 4.1, bicarbonate 33, creatinine 1. Liver function test normal, albumin at 2.6. Hemoglobin 12.7, WBC 12, platelet count 315,000. Urinalysis with many wbc's and bacteria, [place] [address] CONSULTATION Name: KAREEN ROMERO Camryn Room: [address]#: [id number] Admission: 02/24/18 Attend Phys: Karen Gomez Discharge: 02/27/18 Date of : 33 Report #: [id number] cultures negative. Urine culture, greater than 10 to the fifth Escherichia coli, ESBL music video producer, sensitive to aminoglycosides, Zosyn, imipenem. IMPRESSION: An 83-year-old with complicated urinary tract infection. 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 Recommend meropenem while hospitalized, then would go with ertapenem daily as an outpatient. He has a PICC line in place. Urology will follow as outpatient. <ELECTRONICALLY SIGNED> By: Kenneth Rodriguez MD 03/03/18 1026 1759 1812Derika Rodriguez MD /nt
== END 2018-02-27 13:30 | disposition home health service (06) | DRG 689 ==
LOC: M.ERS 16:49 → M.ORTHSURG 17:20 → M.TBA-ER 17:20 → M.ORTHSURG 21:26
PROVIDERS: Emergency Medicine Emergency Medical Services; ADMIT Internal Medicine
PROC: 02HV33Z Insertion of Infusion Device into Superior Vena Cava, Percutaneous Approach (ICD-10-PCS; principal; 2018-02-25)
DX: N30.90 Cystitis, unspecified without hematuria (principal); E43 Unspecified severe protein-calorie malnutrition; R65.10 Systemic inflammatory response syndrome (SIRS) of non-infectious origin without acute organ dysfunction; I50.32 Chronic diastolic (congestive) heart failure; I48.91 Unspecified atrial fibrillation; E87.6 Hypokalemia; N40.0 Benign prostatic hyperplasia without lower urinary tract symptoms; I11.0 Hypertensive heart disease with heart failure; N49.3 Fournier gangrene; B96.20 Unspecified Escherichia coli [E. coli] as the cause of diseases classified elsewhere; E53.8 Deficiency of other specified B group vitamins; R79.89 Other specified abnormal findings of blood chemistry; E55.9 Vitamin D deficiency, unspecified; Z88.1 Allergy status to other antibiotic agents; Z88.5 Allergy status to narcotic agent; Z88.8 Allergy status to other drugs, medicaments and biological substances; Z79.899 Other long term (current) drug therapy; Z79.01 Long term (current) use of anticoagulants; Z72.89 Other problems related to lifestyle

== ENCOUNTER → 2018-03-06 | Outpatient (CLI) | payer OTHER ==
[~2018-03-06] MED LIST changes: +GENTAMICIN100 MG/100 IV; +INVANZ 1GM/NS 101 GM IV
--- NOTE | 2018-03-08 11:21 | CON ---
[address] [address] CONSULTATION Name: KAREEN ROMERO [id number] Admission: 03/06/18 Attend Phys: Toya Chaidez MD Discharge: Date of : 33 Report #: [id number] THIS REPORT FOR: //name// CC: Diogenes Chaidez DATE OF SERVICE: 03/06/2018 INFECTIOUS DISEASE CONSULTATION ATTENDING PHYSICIAN: Dr. Toya Chaidez. [facility] wounds involving the scrotum generally. HISTORY OF PRESENT ILLNESS: Generally, he is doing better. He did require hospitalization for an unrelated issue, complicated urinary tract infection due to multiple resistant organisms including extended spectrum beta lactamase. He had been discharged on parenteral therapy with ertapenem. He is due to complete that course later this week. In terms of the scrotal wounds, they appear to be healing nicely. On examination, there is very little inflammation associated with it. Scrotal wounds secondary to necrotizing infection involving the skin and soft tissue. At this point, we will not extend the antibiotics beyond the prescribed course for the next 3-4 days. Continue wound care as prescribed by Dr. Radford. We will see him back in 2 weeks. <ELECTRONICALLY SIGNED> By: Victor M Isaac MD 03/08/18 1121 1341 1458Joseмарина Isaac MD /nt
== END ==
LOC: M.WC 01:37
DX: T81.31XD Disruption of external operation (surgical) wound, not elsewhere classified, subsequent encounter (principal); I10 Essential (primary) hypertension; I48.91 Unspecified atrial fibrillation; Z87.891 Personal history of nicotine dependence; Y83.8 Other surgical procedures as the cause of abnormal reaction of the patient, or of later complication, without mention of misadventure at the time of the procedure

== ENCOUNTER → 2018-03-13 | Outpatient (CLI) | payer OTHER | LOC: M.WC 01:47 | DX: T81.31XD Disruption of external operation (surgical) wound, not elsewhere classified, subsequent encounter (principal); I10 Essential (primary) hypertension; I48.91 Unspecified atrial fibrillation; Z87.891 Personal history of nicotine dependence; Y83.8 Other surgical procedures as the cause of abnormal reaction of the patient, or of later complication, without mention of misadventure at the time of the procedure ==

== ENCOUNTER → 2018-03-20 | Outpatient (CLI) | payer OTHER ==
--- NOTE | 2018-03-22 11:29 | CON ---
[address] [address] CONSULTATION Name: KAREEN ROMERO Camryn Room: [facility] Travis.#: [id number] Admission: 03/20/18 Attend Phys: Toya Chaidez MD Discharge: Date of : 31 Report #: [id number] THIS REPORT FOR: //name// CC: Diogenes Chaidez ATTENDING PHYSICIAN: Toya Chaidez MD. HISTORY OF PRESENT ILLNESS: The patient returns today in followup in the [facility] with ongoing issues with scrotal wound. This is secondary to necrotizing skin and soft tissue infection he sustained several weeks ago. He had received broad-spectrum therapy for polymicrobial etiology. Subsequently, he developed a complicated urinary tract infection. He has most recently been on ertapenem. At this point, he is off the antibiotics and generally feeling well. Denies any fevers or chills. He has got minimal pain or discomfort associated with the site evaluation. The wound continues to diminish in size. ASSESSMENT AND PLAN: Scrotal wound at this point not feeling, need to continue any antibiotic therapy. Continue wound care as prescribed by Dr. Chaidez and be available as needed. <ELECTRONICALLY SIGNED> By: Victor M Isaac MD 03/22/18 1129 0936 1849Jochristiano Isaac MD /nt
== END ==
LOC: M.WC 00:05
DX: T81.31XD Disruption of external operation (surgical) wound, not elsewhere classified, subsequent encounter (principal); L03.315 Cellulitis of perineum; I10 Essential (primary) hypertension; I48.91 Unspecified atrial fibrillation; Z68.36 Body mass index [BMI] 36.0-36.9, adult; Z87.891 Personal history of nicotine dependence; Y83.8 Other surgical procedures as the cause of abnormal reaction of the patient, or of later complication, without mention of misadventure at the time of the procedure

== ENCOUNTER → 2018-03-27 | Outpatient (CLI) | payer OTHER | LOC: M.WC 00:04 | DX: T81.31XD Disruption of external operation (surgical) wound, not elsewhere classified, subsequent encounter (principal); L03.315 Cellulitis of perineum; I10 Essential (primary) hypertension; I48.91 Unspecified atrial fibrillation; Z68.36 Body mass index [BMI] 36.0-36.9, adult; Z87.891 Personal history of nicotine dependence; Y83.8 Other surgical procedures as the cause of abnormal reaction of the patient, or of later complication, without mention of misadventure at the time of the procedure ==

== ENCOUNTER → 2018-04-10 | Outpatient (CLI) | payer OTHER | LOC: M.WC 04-03 01:30 | DX: T81.31XD Disruption of external operation (surgical) wound, not elsewhere classified, subsequent encounter (principal); L03.315 Cellulitis of perineum; I10 Essential (primary) hypertension; I48.91 Unspecified atrial fibrillation; Z68.36 Body mass index [BMI] 36.0-36.9, adult; Z87.891 Personal history of nicotine dependence; Y83.8 Other surgical procedures as the cause of abnormal reaction of the patient, or of later complication, without mention of misadventure at the time of the procedure ==

== ENCOUNTER 2019-01-04 00:29 | Inpatient (IN) | payer OTHER ==
[~2019-01-04] VITALS: Ht 175.3 cm; Wt 111.1 kg
[2019-01-04 00:30] VITALS: BP 181/86
[2019-01-04 01:17] LABS: ABSOLUTE BASOPHILS 0.1 thou/uL (0.0-0.2); ABSOLUTE EOSINOPHILS 0.2 thou/uL (0.0-0.7); ABSOLUTE LYMPHOCYTES 1.5 thou/uL (0.8-5.3); ABSOLUTE MONOCYTES 0.8 thou/uL (0.0-1.2); ABSOLUTE NEUTROPHILS 7.9 thou/uL (1.6-8.1); EOSINOPHILS 1.5 %; HEMATOCRIT 38.9 % (42.0-52.0); HEMOGLOBIN 12.8 gm/dL (14.0-18.0); LYMPHOCYTES 14.4 %; MCH 29.8 pg (26.0-34.0); MCV 90.5 fL (80.0-100.0); MONOCYTES 7.5 %; MPV 7.7 fl. (7.2-11.1); NUCLEATED RBCS 0 /100WBC; PLATELET COUNT* 255 thou/uL (150-400); POLYS 75.6 %; RDW-CV 13.6 % (10.5-14.5); WBC 10.5 thou/uL (4.0-11.0)
[2019-01-04 01:23] LABS: CALCIUM 8.7 mg/dL (8.5-10.1); CREATININE 1.1 mg/dL (0.6-1.3)
[2019-01-04 01:28] LABS: ALBUMIN 2.8 g/dL (3.4-5.0); TOTAL BILIRUBIN 0.3 mg/dL (<0.1-1.0); TOTAL PROTEIN 6.5 g/dL (6.4-8.2)
[2019-01-04 01:29] LABS: APTT 34.1 Seconds (25.0-31.3); INR 1.2; PROTIME 11.8 Seconds (9.20-11.50)
[2019-01-04 02:16] LABS: ESR (SEDRATE) 40 mm/hr (0-20)
[2019-01-04 04:20] VITALS: BP 173/84
[2019-01-04 08:00] VITALS: BP 186/97
[2019-01-04 11:53] VITALS: BP 146/77
[2019-01-04 17:31] VITALS: BP 164/74
[2019-01-04 20:00] VITALS: BP 182/89
[2019-01-05 10:34] VITALS: BP 154/68
[2019-01-05] MEDS ORDERED: ONDANSETRON HCL4 M2 PO (11:00)
[2019-01-05 11:25] VITALS: BP 154/68
[2019-01-05 13:23] VITALS: BP 154/68
== END 2019-01-05 16:20 | disposition home or self-care (01) | DRG 565 ==
LOC: M.ERS 00:29 → M.ORTHSURG 03:25 → M.TBA-ER 03:25 → M.ORTHSURG 06:04
PROVIDERS: Nurse Practitioner Family; ADMIT Internal Medicine
PROC: 0S9D3ZZ Drainage of Left Knee Joint, Percutaneous Approach (ICD-10-PCS; principal; 2019-01-04)
DX: M25.462 Effusion, left knee (principal); N39.0 Urinary tract infection, site not specified; M17.12 Unilateral primary osteoarthritis, left knee; N40.0 Benign prostatic hyperplasia without lower urinary tract symptoms; I10 Essential (primary) hypertension; I48.91 Unspecified atrial fibrillation; Z79.01 Long term (current) use of anticoagulants; Z88.1 Allergy status to other antibiotic agents; Z88.8 Allergy status to other drugs, medicaments and biological substances; Z79.899 Other long term (current) drug therapy

== ENCOUNTER 2020-07-08 09:27 | Inpatient (IN) | payer MEDICARE ==
[~2020-07-08] VITALS: Ht 175.3 cm; Wt 111.1 kg
[~2020-07-08 09:27] MED LIST changes: +ONDANSETRON HCL4 M2 PO
[2020-07-08 09:47] VITALS: BP 125/68
[2020-07-08] MEDS ORDERED: MULTIPLE VITAM1 EAC2 PO (10:01)
[2020-07-08] MEDS ORDERED: KLOR-CON 10 ER10 MEQ PO (10:01)
[2020-07-08] MEDS ORDERED: ROSUVASTATIN CA20 MG PO (10:02)
[2020-07-08 10:05] LABS: ABSOLUTE EOSINOPHILS 0.1 thou/uL (0.0-0.7); ABSOLUTE LYMPHOCYTES 1.5 thou/uL (0.8-5.3); ABSOLUTE MONOCYTES 1.2 thou/uL (0.0-1.2); ABSOLUTE NEUTROPHILS 5.6 thou/uL (1.6-8.1); BASOPHILS 0.5 %; EOSINOPHILS 1.2 %; HEMATOCRIT 43.9 % (42.0-52.0); HEMOGLOBIN 14.9 gm/dL (14.0-18.0); LYMPHOCYTES 17.7 %; MCH 31.4 pg (26.0-34.0); MCV 92.3 fL (80.0-100.0); MONOCYTES 14.2 %; MPV 7.7 fl. (7.2-11.1); NUCLEATED RBCS 0 /100WBC; PLATELET COUNT* 202 thou/uL (150-400); POLYS 66.4 %; RBC 4.75 mil/uL (4.50-6.00); RDW-CV 13.6 % (10.5-14.5); WBC 8.5 thou/uL (4.0-11.0)
[2020-07-08 10:10] LABS: URINE BILIRUBIN NEGATIVE (Negative); URINE BLOOD NEGATIVE (Negative); URINE CLARITY CLEAR; URINE COLOR YELLOW; URINE GLUCOSE-RANDOM NEGATIVE (Negative); URINE KETONES NEGATIVE (Negative); URINE LEUKOCYTES-REFLEX NEGATIVE (Negative); URINE PROTEIN NEGATIVE (Negative); URINE SPECIFIC GRAVITY 1.025 (1.005-1.030); URINE UROBILINOGEN 0.2 E.U./dl (0.2-1.0)
[2020-07-08 10:11] LABS: URINE NITRITE-REFLEX POSITIVE (Negative)
[2020-07-08 10:11] LABS: CALCIUM 8.8 mg/dL (8.5-10.1); CREATININE 1.4 mg/dL (0.6-1.3); POTASSIUM 4.3 mmol/L (3.5-5.1)
[2020-07-08 10:12] LABS: INR 1.4
[2020-07-08 10:21] LABS: BACTERIA-REFLEX >30 Many /HPF (None Seen); MUCUS 0-3 Light strn/LPF (None Seen); SQUAMOUS 0-3 Few /LPF (0-3); URINE RBC 0-2 Rare /HPF (0-2); URINE WBC-REFLEX 6-15 Few /HPF (0-5)
[2020-07-08 10:22] LABS: CASTS None Seen /LPF (None Seen); CRYSTALS None Seen /LPF (None Seen)
[2020-07-08 10:23] LABS: ALBUMIN 3.5 g/dL (3.4-5.0); TOTAL BILIRUBIN 0.4 mg/dL (<0.1-1.0); TOTAL PROTEIN 7.2 g/dL (6.4-8.2)
[2020-07-08 14:40] VITALS: BP 129/78
--- NOTE | 2020-07-08 15:39 | NUR ---
PATIENT REFUSED THE IS. HE STATES THAT HE WILL DEEP BREATH AND THAT HE HAS ONE AT HOME.
[2020-07-08 16:00] VITALS: BP 115/98
--- NOTE | 2020-07-08 17:06 | NUR ---
PATIENT IS ALERT AND ORIENTED X 4 AND AMBULATES WITH A CANE. 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 HE IS BEING TREATED FOR A UTI ON THIS ADMISSION. HE IS RESTING IN THE BED WATCHING TV. DENIES ANY PAIN. HE DOES USE HIS CALL LIGHT TO MAKE NEEDS KNOWN AND KNOWS TO CALL OUT IF HE NEEDS TO GET OOB. NO PAIN AND NO DISTRESS.
--- NOTE | 2020-07-08 17:15 | EKG ---
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: [place] : 1935 Requested By: Jules Esquivel Order Number: [id number] MD: Srinivasan Omalley Measurements Intervals [place] Rate: 54 P: 51 [place]: 209 QRS: -23 QRSD: 107 T: 29 QT: 456 QTc: 433 Interpretive Statements Sinus rhythm Borderline left axis deviation Low voltage, extremity leads Abnormal R-wave progression, early transition Compared to ECG 02/27/2018 03:34:43 Atrial fibrillation no longer present T-wave abnormality no longer present Electronically Signed On 07-08-2020 17:15:36 CDT by Srinivasan Omalley [email or web address] <ELECTRONICALLY SIGNED> By: Srinivasan Omalley MD, [facility] 07/08/20 1715 1039 1039 Srinivasan Omalley MD, [facility] /EPI
[2020-07-08 20:00] VITALS: BP 167/78
[2020-07-08] MEDS ORDERED: TAMBOCOR 100 M100 MG PO (20:54)
[2020-07-09 04:22] LABS: HEMATOCRIT 40.5 % (42.0-52.0); HEMOGLOBIN 13.8 gm/dL (14.0-18.0); MCH 31.6 pg (26.0-34.0); MCHC 34.1 g/dL (28.0-37.0); MCV 92.6 fL (80.0-100.0); MPV 7.4 fl. (7.2-11.1); RBC 4.37 mil/uL (4.50-6.00); RDW-CV 13.6 % (10.5-14.5); WBC 6.9 thou/uL (4.0-11.0)
[2020-07-09 04:40] LABS: CALCIUM 8.5 mg/dL (8.5-10.1); CREATININE 1.3 mg/dL (0.6-1.3); MAGNESIUM 2.3 mg/dL (1.8-2.4); POTASSIUM 4.4 mmol/L (3.5-5.1)
--- NOTE | 2020-07-09 07:28 | NUR ---
PT HAD RESTFUL NIGHT, SLEEPING WELL BUT WAKING THIS AM WITH HEADACHE FOR WHICH TYLENOL WERE GIVEN. PT WAS CONCERNED ABOUT HOME MEDS NOT BEING GIVEN AT THE SAME TIME HE TAKES THEM AND THE DOSE OF TAMBACOR, I EDUCATED HIM ON HOW HOME MEDS WERE APPROVED BY AND THAT I CORRECTED HIS DOSE IN THE MED REC AND WOULD LET THE DAY NURSE KNOW THAT A CHANGE NEEDS TO BE MADE PER HIS REQUEST. HE WAS STILL CONCERNED THAT HE WAS NOT GETTING THE PROPER DOSE AND WAS A BIT ANXIOUS ABOUT POSSIBLE ARRYTHMIA DUE TO THIS. ADA
[2020-07-09 07:40] VITALS: BP 176/84
--- NOTE | 2020-07-09 09:30 | NUR ---
PT.SITTING ON SIDE OF BED. WAS ALERT AND ORIENTED. HE JEFF CHOU LIVES WITH HIS . [facility] IN [facility] [place] AFTER HAVING A VALVE REPLACEMENT YESTERDAY. SHE IS ABLE TO NORMALLY HELP HIM BUT WILL PROBABLY NOT BE ABLE TO THIS ITME. HE SAID HE SHOULDN'T NEED HELP. HE IS NORMALLY INDEPENDENT. 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 HE HAS A CANE. HE HAS USED [facility] IN THE PAST FOR HH AND HAS HAD IV ANTIBIOTICS AT HOME ABOUT 2 YRS AGO. HSE SAID TOLD HIM HE MORE THAN LIKELY WILL NEED IVAB AT DISCHARGE. IS TO GET PICC LINE TODAY. IN REVIEWING CHART PT USED [facility] PREVIOUSLY FOR IV AB. HE WOULD LIKE TO USE THEM AGAIN. FAXED FACE SHEET AND MED LIST TO [facility] [phone]. KEITH/ADRIANO ([phone]) CALLED BACK AFTER CHECKING PTS INS. BENEFITS. PT.WILL HAVE $1000 DEDUCTIBLE THEN IVAB WOULD BE 80/20 AND $3300 OOP AFTER THIS MET, PT WOULD ONLY BE RESPONSIBLE FOR $185/WEEK FOR IV MEREM WHICH HE IS ON NOW. WOULD BE A DIFFERENT AMOUNT IF IVAB CHANGES. THEY WILL NOT BILL UNTIL AFTER HOSPITAL BILL HAS PROCESSED CLAIM.
--- NOTE | 2020-07-09 16:15 | NUR ---
PATIENT UP AD TRUONG AROUND ROOM WITHOUT DIFFICULTY. MIDLINE ORDERED FOR OUTPATIENT ABX, YULY RN PLACED MIDLINE TO RIGHT UPPER ARM. MERREM BID IV GIVEN ORDERED. NO COMPLAINTS OF PAIN. URINE CULTURE REMAINS PENDING.
[2020-07-09 16:30] VITALS: BP 103/58
[2020-07-09 19:40] VITALS: BP 140/66
--- NOTE | 2020-07-10 05:47 | NUR ---
Pt alert and orieented. VSS on RA. Meds given as ordered. Pt voiced that he takes lasix, @ 0800 and @ noon and would want the current lasix changed to that to avoid him peeing all night. IKER lee IV SL. ambulates independently to the bathroom. Encouraged to call when needing assistance. Pt requested for tyenol this morning for headache. Tylenol given as ordered.
[2020-07-10 07:32] VITALS: BP 169/82
[2020-07-10 09:40] VITALS: BP 169/82
--- NOTE | 2020-07-10 10:13 | NUR ---
FAxed pt information to [facility] for IV medication Ertapenem 1g daily for 12 days and [facility] HH. Notified pt would let him know out of pocket costs once CM hears back from [facility].
[2020-07-10 11:01] VITALS: BP 169/82
--- NOTE | 2020-07-10 11:26 | NUR ---
Recvd call back from [facility] [phone] New IV Abx Ertapenem pt cost out of pocker will be $307.74 1st week and slightly less 2nd week since it is 12 day course. [facility] will also come to pts room to provide education on the med at 1pm today. Pt notified med cost and education time today.
[2020-07-10 13:55] VITALS: BP 169/82
--- NOTE | 2020-07-10 14:07 | NUR ---
PT DISCHARGED HOME. COPY OF DISCHARGE PAPERWORK TO PT WITH EXPLAINATION. PT VERBALIZED UNDERSTANDING. RU MIDLINE LEFT IN PLACE FOR HOME ANTIBIOTICS BY [facility], [facility].
== END 2020-07-10 14:10 | disposition home health service (06) | DRG 690 ==
LOC: M.ERS 09:27 → M.3W 10:49 → M.TBA-ER 10:49 → M.3W 14:49
PROVIDERS: Family Medicine; ADMIT Internal Medicine; ATTEND Internal Medicine
PROC: 05HY33Z Insertion of Infusion Device into Upper Vein, Percutaneous Approach (ICD-10-PCS; principal; 2020-07-09)
DX: N39.0 Urinary tract infection, site not specified (principal); D68.69 Other thrombophilia; I48.91 Unspecified atrial fibrillation; B96.20 Unspecified Escherichia coli [E. coli] as the cause of diseases classified elsewhere; N18.3 Chronic kidney disease, stage 3 (moderate); N40.1 Benign prostatic hyperplasia with lower urinary tract symptoms; E66.9 Obesity, unspecified; I12.9 Hypertensive chronic kidney disease with stage 1 through stage 4 chronic kidney disease, or unspecified chronic kidney disease; Z20.828 Contact with and (suspected) exposure to other viral communicable diseases; Z88.0 Allergy status to penicillin; Z88.6 Allergy status to analgesic agent; Z88.8 Allergy status to other drugs, medicaments and biological substances; Z88.1 Allergy status to other antibiotic agents; Z68.36 Body mass index [BMI] 36.0-36.9, adult

== ENCOUNTER 2021-02-25 13:14 | Inpatient (IN) | payer OTHER ==
[~2021-02-25] VITALS: Ht 172.7 cm; Wt 113.4 kg
[~2021-02-25 13:14] MED LIST changes: +KLOR-CON 10 ER10 MEQ PO; +MULTIPLE VITAM1 EAC2 PO; +ROSUVASTATIN CA20 MG PO; +TAMBOCOR 100 M100 MG PO
[2021-02-25 13:26] VITALS: BP 183/88
[2021-02-25] MEDS ORDERED: TOPROL XL25 MG PO (13:30)
[2021-02-25] MEDS ORDERED: LIPITOR40 MG PO (13:31)
[2021-02-25 13:51] LABS: ABSOLUTE EOSINOPHILS 0.1 thou/uL (0.0-0.7); ABSOLUTE LYMPHOCYTES 1.3 thou/uL (0.8-5.3); ABSOLUTE MONOCYTES 0.6 thou/uL (0.0-1.2); BASOPHILS 0.5 %; HEMATOCRIT 44.3 % (42.0-52.0); HEMOGLOBIN 14.5 gm/dL (14.0-18.0); LYMPHOCYTES 14.5 %; MCH 29.5 pg (26.0-34.0); MCHC 32.8 g/dL (28.0-37.0); MCV 89.9 fL (80.0-100.0); MONOCYTES 6.9 %; MPV 7.5 fl. (7.2-11.1); NUCLEATED RBCS 0 /100WBC; PLATELET COUNT* 224 thou/uL (150-400); POLYS 77.1 %; RBC 4.93 mil/uL (4.50-6.00); RDW-CV 13.7 % (10.5-14.5); WBC 9.1 thou/uL (4.0-11.0)
[2021-02-25 14:04] LABS: CREATININE 1.2 mg/dL (0.6-1.3); POTASSIUM 4.6 mmol/L (3.5-5.1)
[2021-02-25 14:17] LABS: ALBUMIN 3.3 g/dL (3.4-5.0); TOTAL BILIRUBIN 0.6 mg/dL (<0.1-1.0); TOTAL PROTEIN 7.1 g/dL (6.4-8.2)
--- NOTE | 2021-02-25 15:12 | EKG ---
[place] [address] ELECTROCARDIOGRAM REPORT Name: KAREEN ROMERO Room: [place] [address] ADM IN [facility]#: [id number] Admission: 02/25/21 Attend Phys: Dm Hagan, Discharge: Date of : 31 Date of Service: 02/25/21 1408 Report #: [id number] THIS REPORT FOR: //name// [facility] ED Test Date: 2021-02-25 Test Time: 14:08:05 Pat Name: KAREEN ROMERO Department: Room: [facility] Gender: M Straw Baler: ARNALDO : 1935 Requested By: Jules Esquivel Order Number: [id number] MD: Tunde Quinones Measurements Intervals [place] Rate: 53 P: 15 [place]: 215 QRS: -32 QRSD: 96 T: 51 QT: 471 QTc: 443 Interpretive Statements Sinus rhythm Borderline prolonged [place] interval Left axis deviation Compared to ECG 07/08/2020 10:39:00 No significant changes Electronically Signed On 02-25-2021 15:12:38 CDT by Tunde Quinones [email or web address] <ELECTRONICALLY SIGNED> By: Aaron Quinones MD, [facility] 02/25/21 1512 1408 1408 Aaron Quinones MD, [facility] /EPI
[2021-02-25 15:25] LABS: URINE BILIRUBIN NEGATIVE (Negative); URINE BLOOD NEGATIVE (Negative); URINE CLARITY CLEAR; URINE COLOR YELLOW; URINE GLUCOSE-RANDOM NEGATIVE (Negative); URINE KETONES NEGATIVE (Negative); URINE LEUKOCYTES-REFLEX 1+ (Negative); URINE PROTEIN NEGATIVE (Negative); URINE UROBILINOGEN 0.2 E.U./dl (0.2-1.0)
--- NOTE | 2021-02-25 15:27 | NUR ---
DR. JORDAN NOTIFIED OF PT'S BLOOD PRESSURE OF 199/94 VIA ONLINE PAGING SYSTEM.
[2021-02-25 15:28] LABS: URINE NITRITE-REFLEX POSITIVE (Negative)
[2021-02-25 15:33] LABS: CASTS None Seen /LPF (None Seen); CRYSTALS None Seen /LPF (None Seen); SQUAMOUS 0-3 Few /LPF (0-3); URINE RBC 0-2 Rare /HPF (0-2); URINE WBC-REFLEX 0-5 Rare /HPF (0-5)
[2021-02-25 17:04] VITALS: BP 132/72
--- NOTE | 2021-02-25 19:57 | NUR ---
Pt arrived to unit from ED around 1710. Pt wearing his overalls and jacket over his hospital gown. Pt A&O x4 and pleasant with staff. Pt settled into chair with his dinner. Bed in low position, call light within reach.
[2021-02-25 20:30] VITALS: BP 178/78
[2021-02-26 05:14] LABS: HEMOGLOBIN 13.6 gm/dL (14.0-18.0); MCH 28.9 pg (26.0-34.0); MCHC 32.4 g/dL (28.0-37.0); MCV 89.2 fL (80.0-100.0); MPV 7.9 fl. (7.2-11.1); RBC 4.71 mil/uL (4.50-6.00); RDW-CV 13.7 % (10.5-14.5); WBC 8.9 thou/uL (4.0-11.0)
[2021-02-26 05:26] LABS: CALCIUM 8.9 mg/dL (8.5-10.1); MAGNESIUM 2.3 mg/dL (1.8-2.4); POTASSIUM 3.9 mmol/L (3.5-5.1)
--- NOTE | 2021-02-26 06:28 | NUR ---
PATIENT RESTING IN BED. IV TO LEFT FOREARM, PATENT, DRESSIGN C/D/I. NO C/O PAIN/DISCOMFORT. ALL QUESTIONS AND CONCERNS ADDRESSED. WILL CONTINUE TO MONITOR.
[2021-02-26 08:30] VITALS: BP 121/53
--- NOTE | 2021-02-26 09:45 | NUR ---
SOKE WITH PT. HE WAS ALERT AND ORIENTED. LIVES WITH HIS WIE. SHE IS DOING WELL. HAD AN AVR LAST YEAR. HE SAID THEY BOTH SEEM TIRED . HE FEELS SHE IS HAVING SOME MEMORY PROBLEMS. HE WILL CONSULT HER DR. HE USES A CANE FOR MOBILITY. ALSO HAS A FWW AT HOME. HE HAD A KNEE REPLACEMENT IN [place]. HE IS BACK IN FOR A UTI. PLANNING ON SENDING HOME WITH IV ANTIBIOCS. HE DID THIS LAST YEAR ALSO AND DID FINE. HE WOULD LIKE TO USE [facility] FOR HH AND [facility] FOR IV THERAPY HE DID LAST TIME. CM WILL FAX FACE SHEET TO [facility] TO CHECK PRICES FOR IVAB. CULTURES PENDING.
--- NOTE | 2021-02-26 15:11 | NUR ---
RIGHT BASILIC VESSEL ACCESSED FOR 4 FAROESE SINGLE LUMEN PICC. LINE PRE-TRIMMED TO 40CM AND ADVANCED TO THE ZERO MARTELL WITH NO RESISTANCE MET. UPPER ARM CIRCUMFERENCE ABOVE INSERTION SITE= 13". SHERLOCK MAGNET AND 3CG CONFIRMATION OF TIP TERMINATION AT THE CAVOATRIAL JUNCTION APPRECIATED. GUIDEWIRE REMOVED, LINE FLUSHED AND INSERTION SITE DRESSED. REPORT GIVEN TO CASE REDD.
[2021-02-26 16:00] VITALS: BP 199/84
--- NOTE | 2021-02-26 19:41 | NUR ---
I ASSUMED CARE OF THE PATIENT AT 0700. HE IS ALERT AND ORIENTED X4 AND IS UP AD TRUONG IN HIS ROOM. BED IS IN THE LOW LOCKED POSITION AND CALL LIGHT IS IN REACH. HOURLY ROUNDING IS COMPLETE AND PATIENT NEEDS ARE MET. PAIN IS DENIED. PICC LINE WAS PLACED BY INFUSION NURSE AT THE BEDSIDE AND PLACEMENT WAS CONFIRMED. CT WAS COMPLETED. WILL CONTINUE TO MONITOR.
[2021-02-26 20:00] VITALS: BP 202/91
[2021-02-26 22:15] VITALS: BP 191/82
[2021-02-26 23:46] VITALS: BP 113/68
--- NOTE | 2021-02-27 05:44 | NUR ---
PATIENT RESTING IN BED. PICC LINE TO RIGHT UPPER ARM, PATENT, DRESSING C/D/I. NO C/O PAIN/DISCOMFORT. URINATING TO URINAL WITHOUT DIFFICULTIES. HYDRALAZIN GIVEN X1 FOR ELEVATED BLOOD PRESSURE. NO C/O PAIN/DISCOMFORT. WILL CONTINUE TO MONITOR.
[2021-02-27 08:00] VITALS: BP 160/72
--- NOTE | 2021-02-27 09:03 | NUR ---
ONGOING ASSESSMENT: MIDLINE PLACED TODAY. CONT IV ABX. REPEAT CULTURES. LABS IN AM. CM FAXED REFERRAL TO [facility] [phone].
--- NOTE | 2021-02-27 12:13 | NUR ---
OZZY Thacker/[facility] STATED [facility] IS OUT OF NETWORK. REFERRAL SENT TO [facility] . [phone] -FAX.
--- NOTE | 2021-02-27 14:29 | NUR ---
RANDY S/W [place]GHIA FROM [facility], UNABLE TO ACCEPT D/T OUT OF NETWORK. [facility] FAXED REFERRAL TO [facility] [phone]. [facility] S/W [place]. ABLE TO ACCEPT PT BACK ONTO SERVICE. CO-PAY FOR PART B AND SUPPLIES IS $204/WK. PT AGREED TO PAY COPAY. [facility] CAN START PT OVER THE WEEKEND AND DO BEDSIDE TRAINING AT HOSPITAL OR PT HOME DEPENDING ON WHAT PT/SON PREFERS. THANIA TO TOUCH BASE WITH PT/SON TO DISCUSS. [facility] [phone]
[2021-02-27 17:00] VITALS: BP 136/67
--- NOTE | 2021-02-27 18:04 | NUR ---
ASSUMED CARE OF PATIENT AT 1000. REPORT RECEIVED FROM COURTNEY REDD. PATIENT RESTING UP IN CHAIR. PATIENT IS UP STANDBY ASSIST WITH CANE. PATIENT DENIES ANY PAIN. PATIENT CONCERNED OVER MEDICATION TIMING THIS AM WHICH HAS BEEN RESOLVED. PATIENT HAS GOOD APPETITE. UA RESENT TO LAB ORDERED. PATIENT DENIES ANY NEEDS AT THIS TIME. CALL LIGHT WITHIN REACH.
[2021-02-27 19:50] VITALS: BP 124/62
[2021-02-27 21:38] LABS: URINE BILIRUBIN NEGATIVE (Negative); URINE BLOOD NEGATIVE (Negative); URINE CLARITY CLEAR; URINE COLOR YELLOW; URINE GLUCOSE-RANDOM NEGATIVE (Negative); URINE KETONES NEGATIVE (Negative); URINE LEUKOCYTES-REFLEX NEGATIVE (Negative); URINE NITRITE-REFLEX NEGATIVE (Negative); URINE PROTEIN NEGATIVE (Negative); URINE UROBILINOGEN 0.2 E.U./dl (0.2-1.0)
[2021-02-28 04:21] LABS: HEMATOCRIT 42.5 % (42.0-52.0); HEMOGLOBIN 13.9 gm/dL (14.0-18.0); MCHC 32.7 g/dL (28.0-37.0); MCV 88.6 fL (80.0-100.0); MPV 7.6 fl. (7.2-11.1); RBC 4.79 mil/uL (4.50-6.00); WBC 9.1 thou/uL (4.0-11.0)
[2021-02-28 04:31] LABS: CALCIUM 9.5 mg/dL (8.5-10.1); CREATININE 1.2 mg/dL (0.6-1.3); POTASSIUM 4.1 mmol/L (3.5-5.1)
--- NOTE | 2021-02-28 04:45 | NUR ---
PT A&O, VSS ON RA. MEDS GIVEN ORDERED. DENIED PAIN. PT SLEPT MOST OF THE NIGHT. NO OTHER CONCERNS AT THIS TIME. WILL CONTINUE TO MONITOR.
[2021-02-28 08:00] VITALS: BP 121/71
[2021-02-28 11:36] LABS: URINE BILIRUBIN NEGATIVE (Negative); URINE BLOOD NEGATIVE (Negative); URINE CLARITY CLEAR; URINE COLOR YELLOW; URINE GLUCOSE-RANDOM NEGATIVE (Negative); URINE KETONES NEGATIVE (Negative); URINE LEUKOCYTES NEGATIVE (Negative); URINE NITRITE NEGATIVE (Negative); URINE PROTEIN NEGATIVE (Negative); URINE SPECIFIC GRAVITY 1.015 (1.005-1.030); URINE UROBILINOGEN 0.2 E.U./dl (0.2-1.0)
--- NOTE | 2021-02-28 16:24 | NUR ---
PATIENT UP TO CHAIR MOST OF SHIFT. UP WITH ASSISTANCE, USES CANE. PICC LINE SL, FLUSHING WITHOUT DIFFICULTY AND GOOD BLOOD RETURN. IV ABX INFUSED ORDERED. UA SENT PER ORDERS WITH CULTURE PENDING, PATIENT AWARE OF PLAN OF CARE. NO COMPLAINTS OF PAIN.
[2021-02-28 16:54] VITALS: BP 146/71
[2021-02-28 20:00] VITALS: BP 155/68
--- NOTE | 2021-03-01 05:00 | NUR ---
PT A&O. MEDS GIVEN ORDERED. VSS ON RA. NO C/O PAIN. PT TOOK A SHOWER AND SAID " FEEL MUCH BETTER" WILL CONTINUE TO MONITOR.
[2021-03-01 11:53] VITALS: BP 141/72
[2021-03-01 16:22] VITALS: BP 159/76
--- NOTE | 2021-03-01 18:32 | NUR ---
PT A&Ox4. VITALS STABLE. UP INDEPENDENTLY IN ROOM. PICC PATENT. DENIED PAIN. DENIED NAUSEA. CALL LIGHT WITHIN REACH. WILL CONTINUE TO MONITOR.
[2021-03-01 19:55] VITALS: BP 187/84
[2021-03-02 05:15] LABS: HEMATOCRIT 42.8 % (42.0-52.0); HEMOGLOBIN 13.9 gm/dL (14.0-18.0); MCHC 32.5 g/dL (28.0-37.0); MCV 89.4 fL (80.0-100.0); MPV 7.4 fl. (7.2-11.1); RBC 4.79 mil/uL (4.50-6.00); RDW-CV 13.8 % (10.5-14.5); WBC 9.6 thou/uL (4.0-11.0)
--- NOTE | 2021-03-02 05:23 | NUR ---
PATIENT HAS REMAINED ALERT AND ORIENTED X 4 THROUGHOUT THE SHIFT AND RESTING QUIETLY ON HOURLY ROUNDS. PATIENT DIRECTING SCHEDULE FOR BP MEDS. UP INDEPENDENTLY IN THE ROOM. ANTIBIOTICS PER ORDER. CONTINUE TO MONITOR.
[2021-03-02 05:32] LABS: CALCIUM 8.5 mg/dL (8.5-10.1); CREATININE 1.1 mg/dL (0.6-1.3); POTASSIUM 4.2 mmol/L (3.5-5.1)
[2021-03-02 08:09] VITALS: BP 167/90
[2021-03-02 09:53] VITALS: BP 167/90
[2021-03-02 12:26] VITALS: BP 167/90
--- NOTE | 2021-03-02 13:14 | NUR ---
THIS NURSE AGREES WITH ASSESSMENT
--- NOTE | 2021-03-02 13:33 | NUR ---
Pt discharging to home today. [facility] faxed dc orders and med list to [facility], per , Pt will need home ivabx x2more days, to pull picc after infusion on Tuesday. RANDY faxed dc orders to [facility], confirmed receipt. No further needs.
--- NOTE | 2021-03-02 15:52 | NUR ---
PATIENT DISCHARGED TO HOME VIA WHEELCHAIR ACCOMPANIED BY FAMILY MEMBER. PICC DRESSING CHANGED VIA STERILE TECHNIQUE. DRESSING TO LEFT FOREARM WOUND CHANGED. PATIENT TOLERATED PROCEDURES WELL. PATIENT SENT HOME WITH X1 OPTI-FOAM. DISCHARGE PAPERS REVIEWED WITH PATIENT, PATIENT ACKNOWLEDGE THAT HE UNDERSTOOD AND HAD NO QUESTIONS.
== END 2021-03-02 15:58 | disposition home health service (06) | DRG 690 ==
LOC: M.ERS 13:14 → M.ORTHSURG 13:59 → M.TBA-ER 13:59 → M.ORTHSURG 17:08
PROVIDERS: Family Medicine; ADMIT Internal Medicine; ATTEND Internal Medicine
PROC: 02HV33Z Insertion of Infusion Device into Superior Vena Cava, Percutaneous Approach (ICD-10-PCS; principal; 2021-02-26)
PROC: B548ZZA Ultrasonography of Superior Vena Cava, Guidance (ICD-10-PCS; principal; 2021-02-26)
DX: N39.0 Urinary tract infection, site not specified (principal); Z16.12 Extended spectrum beta lactamase (ESBL) resistance; D68.69 Other thrombophilia; I13.0 Hypertensive heart and chronic kidney disease with heart failure and stage 1 through stage 4 chronic kidney disease, or unspecified chronic kidney disease; I50.32 Chronic diastolic (congestive) heart failure; N20.0 Calculus of kidney; B96.89 Other specified bacterial agents as the cause of diseases classified elsewhere; E66.9 Obesity, unspecified; I48.91 Unspecified atrial fibrillation; N18.30 Chronic kidney disease, stage 3 unspecified; I25.10 Atherosclerotic heart disease of native coronary artery without angina pectoris; Z96.659 Presence of unspecified artificial knee joint; Z20.822 Contact with and (suspected) exposure to COVID-19; Z68.38 Body mass index [BMI] 38.0-38.9, adult; Z88.0 Allergy status to penicillin; Z79.01 Long term (current) use of anticoagulants; Z79.899 Other long term (current) drug therapy; Z88.1 Allergy status to other antibiotic agents; Z88.5 Allergy status to narcotic agent; Z88.8 Allergy status to other drugs, medicaments and biological substances